=== PATIENT | female | born 1970 | race Caucasian/White ===

== ENCOUNTER → 2022-06-20 11:53 | Outpatient (CLI) | payer OTHER, SELFPAY ==
--- NOTE | ~2022-06-20 | MM_ITS ---
EXAMINATION: MM screening andressa BI w pawan HISTORY: Screening TECHNIQUE: Craniocaudal and mediolateral oblique 3-D tomosynthesis images were obtained and synthetic 2-D images were generated. CAD analysis was submitted and interpreted. COMPARISON: No prior mammogram is available for comparison at this institution. BREAST PARENCHYMAL COMPOSITION: There are scattered areas of fibroglandular density. FINDINGS: There is no evidence of suspicious mass, calcification, or architectural distortion to sugg est malignancy in either breast. There has been no suspicious interval change. IMPRESSION: 1. No mammographic evidence of malignancy. 2. Recommend routine screening mammography in one year. BI-RADS Category 1: Negative Reviewed, dictated and finalized at location A.
== END ==
PROVIDERS: PCP Family Medicine; Visit Provider Family Medicine
DX: Z12.31 Encounter for screening mammogram for malignant neoplasm of breast (principal)
CPT/HCPCS: 77063; 77067

== ENCOUNTER → 2022-07-14 07:58 | Outpatient (CLI) | payer OTHER, SELFPAY ==
--- NOTE | ~2022-07-14 | MR_ITS ---
EXAMINATION: MR foot RT wo con DATE: 07/14/2022 08:44 INDICATION: Right forefoot pain TECHNIQUE: Magnetic resonance imaging (MRI) of the right fore/mid foot was performed without intraven ous contrast. Sequences included sagittal T1-weighted FSE, sagittal fluid sensitive FSE STIR, coronal PD-weighted FS FSE, coronal T1-weighted FSE, axial PD-weighted FS FSE, and axial PD-weighted FSE. COMPARISON: None FINDINGS: Bone alignment is normal. No fracture or pathologic marrow replacing process. Moderate to severe oste oarthritis at the first metatarsophalangeal joint moderate size marginal osteophytes at the dorsal he ad of the first metatarsal and small joint effusion. Additional osteoarthritis at a few of the tarsal metatarsal joints, moderate at the first were there is mild subarticular edema-like signal change at the dorsolateral base of the first metatarsal and otherwise mild. The Lisfranc ligament complex and the collateral ligament complexes at the metatarsophalangeal and interphalangeal joints are normal. I ntrinsic musculature as well as the visualized portion of the flexor and extensor tendons are normal. IMPRESSION: 1. 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 Reviewed, dictated and finalized at location A.
== END ==
PROVIDERS: PCP Chiropractor Rehabilitation; Visit Provider Chiropractor Rehabilitation
DX: M19.071 Primary osteoarthritis, right ankle and foot (principal)
CPT/HCPCS: 73718

== ENCOUNTER 2025-02-04 09:28 | Outpatient (CLI) | payer OTHER, SELFPAY ==
--- NOTE | ~2025-02-04 | US_ITS ---
Examination: US abdomen complete Clinical History: elevated liver enzymes . Comparison: None Technique: Complete abdominal sonography Findings: Liver: Normal size. Normal echotexture. No intrahepatic biliary ductal dilatation. Normal hepatopedal flow main portal vein. 18 mm hyperechoic focus segment 3 most consistent with hemangioma. Common duct: Normal caliber, 5 mm. Gallbladder: No stones. No wall thickening. No pericholecystic fluid. Spleen: Unremarkable. Pancreas: Unremarkable. Kidneys: Unremarkable. Aorta: No aneurysmal dilatation. Retrohepatic IVC: Unremarkable. IMPRESSION: 1. No acute findings. Reviewed, dictated and finalized at location [facility] IMPRESSION: 1. No acute findings.
--- OUTSIDE RECORDS SUMMARY | 2025-02-04 10:06 | XMS_ITS | Continuity of Care Document ---
Author Organization [facility] Main Office Address [address] [place] [address] Assessment Encounter Date Assessment Date Assessment LastModified by Organization Details LastModified Time 12/07/2024 12/07/2024 Will send in testosterone based on blood work Try increasing melatonin May use Ketotifen to lower histamine and help with sleep cwillbrand Not available 12/07/2024 17:53:59 Plan of Treatment Reminders Order Date Submit Date Provider Last Modified By Organization Details Last Modified Time Details Appointments None recorded . Lab CORINNA (antinuc lear antibodi es) titer + pattern, ifa, serum 12/08/19 amalic [facility], [address], [place], [address], 5 07:30:14 CBC w/ auto diff 12/08/19 amalic [facility], [address], [place], [address], 5 07:30:14 cortisol , serum or plasma 12/08/19 amalic [facility], [address], [place], [address], 5 07:30:14 insulin, fasting, serum 025 12/08/19 amalic [facility], [address], [place], [address], 5 07:30:14 lipid panel, serum 12/08/19 amalic [facility], [address], [place], [address], 5 07:30:14 CBC w/ auto diff 12/08/19 amali [facility], [address], [place], [address], 5 07:30:14 CMP, serum or plasma 12/08/19 amali [facility], [address], [place], [address], 5 07:30:14 testoste scottie, free + total, serum 12/08/19 amalic Not available 5 07:30:13 estradio l, serum 12/08/19 amalic Not available 5 07:30:14 progeste scottie, serum 12/08/19 amalic Not available 5 07:30:14 dhea-sul fate, serum 12/08/19 amalic Not available 5 07:30:14 FSH (follicl e-stimul ating hormone) , serum 12/08/19 [facility], [address], [place], [address], 5 07:30:14 Referral None recorded . Procedures None recorded . Surgeries None recorded . Imaging None recorded . Medication Orders None recorded . Patient TargetsNo targets recorded. Patient InstructionsNo instructions recorded. Reason for Referral None Reported. Results Created Date Observation Date Name Description Value Unit Range Abnormal Flag Note LastModifiedBy Organization Detail LastModifiedTime 12/17/1912/16/2024 CBC WITH DIFFE RENTI AL/PL ATELE T WBC 4.7 x10e3 /uL 3.4-10 .8 normal Not Available [facility] ([facility]) [address] [facility], [place], [address], 12/22/2024 14:36:56 12/17/19 25 12/16/2024 CBC WITH DIFFE RENTI AL/PL ATELE T RBC 4.55 x10e6 /uL 3.77-5 .28 normal Not Available [facility] ([facility]) [address] [facility] [address] [facility], [place], [address], 12/22/2024 14:36:56 12/17/19 25 12/16/2024 CBC WITH DIFFE RENTI AL/PL ATELE T hemoglobin 13.5 g/dL 11.1-1 5.9 normal Not Available [facility] ([facility]) [address] [facility] [address] [facility], [place], [address], 12/22/2024 14:36:56 12/17/19 25 12/16/2024 CBC WITH DIFFE RENTI AL/PL ATELE T hematocrit 43.0 % 34.0-4 6.6 normal Not Available [facility] ([facility]) [address] [place], [address], 12/22/2024 14:36:56 12/17/19 25 12/16/2024 CBC WITH DIFFE RENTI AL/PL ATELE T MCV 95 fL 79-97 normal Not Available [facility] ([facility]) [address] [place], [address], 12/22/2024 14:36:56 12/17/19 25 12/16/2024 CBC WITH DIFFE RENTI AL/PL ATELE T MCH 29.7 pg 26.6-3 3.0 normal Not Available [facility] ([facility]) [address] [place], [address], 12/22/2024 14:36:56 12/17/19 25 12/16/2024 CBC WITH DIFFE RENTI AL/PL ATELE T MCHC 31.4 g/dL 31.5-3 5.7 below low normal Not Available [facility] ([facility]) [address] [facility], [place], [address], 12/22/2024 14:36:56 12/17/19 25 12/16/2024 CBC WITH DIFFE RENTI AL/PL ATELE T RDW 12.2 % 11.7-1 5.4 Not Available [facility] ([facility]) [address] [facility] [address] [facility], [place], [address], 12/22/2024 14:36:56 12/17/19 25 12/16/2024 CBC WITH DIFFE RENTI AL/PL ATELE T platelets 286 x10e3 /uL 150-45 0 normal Not Available [facility] ([facility]) [address] [facility] [address] [facility], [place], [address], 12/22/2024 14:36:56 12/17/19 25 12/16/2024 CBC WITH DIFFE RENTI AL/PL ATELE T neutrophils 69 % not estab. normal Not Available [facility] ([facility]) [address] [facility] [address] [facility], [place], [address], 12/22/2024 14:36:56 12/17/19 25 12/16/2024 CBC WITH DIFFE RENTI AL/PL ATELE T lymphs 21 % not estab. normal Not Available [facility] ([facility]) [address] [facility] [address] [facility], [place], [address], 12/22/2024 14:36:56 12/17/19 25 12/16/2024 CBC WITH DIFFE RENTI AL/PL ATELE T monocytes 7 % not estab. normal Not Available [facility] ([facility]) [address] [facility], [place], [address], 12/22/2024 14:36:56 12/17/19 25 12/16/2024 CBC WITH DIFFE RENTI AL/PL ATELE T eos 2 % not estab. normal Not Available [facility] ([facility]) [address] [facility] [address] [facility], [place], [address], 12/22/2024 14:36:56 12/17/19 25 12/16/2024 CBC WITH DIFFE RENTI AL/PL ATELE T basos 1 % not estab. normal Not Available [facility] ([facility]) [address] [facility] [address] [facility], [place], [address], 12/22/2024 14:36:56 12/17/19 25 12/16/2024 CBC WITH DIFFE RENTI AL/PL ATELE T immature cells [employer] Not Available [facility] ([facility]) [address] [facility] [address] [facility], [place], [address], 12/22/2024 14:36:56 12/17/19 25 12/16/2024 CBC WITH DIFFE RENTI AL/PL ATELE T neutrophils (absolute) 3.2 x10e3 /uL 1.4-7. 0 normal Not Available [facility] ([facility]) [address] [place], [address], 12/22/2024 14:36:56 12/17/19 25 12/16/2024 CBC WITH DIFFE RENTI AL/PL ATELE T lymphs (absolute) 1.0 x10e3 /uL 0.7-3. 1 normal Not Available [facility] ([facility]) [address] [place], [address], 12/22/2024 14:36:56 12/17/19 25 12/16/2024 CBC WITH DIFFE RENTI AL/PL ATELE T monocytes(ab solute) 0.3 x10e3 /uL 0.1-0. 9 normal Not Available [facility] ([facility]) [address] [place], [address], 12/22/2024 14:36:56 12/17/19 25 12/16/2024 CBC WITH DIFFE RENTI AL/PL ATELE T eos (absolute) 0.1 x10e3 /uL 0.0-0. 4 normal Not Available [facility] ([facility]) [address] [facility], [place], [address], 12/22/2024 14:36:56 12/17/19 25 12/16/2024 CBC WITH DIFFE RENTI AL/PL ATELE T baso (absolute) 0.0 x10e3 /uL 0.0-0. 2 normal Not Available [facility] ([facility]) [address] [facility], [place], [address], 12/22/2024 14:36:56 12/17/19 25 12/16/2024 CBC WITH DIFFE RENTI AL/PL ATELE T immature granulocytes 0 % not estab. Not Available [facility] ([facility]) [address] [facility], [place], [address], 12/22/2024 14:36:56 12/17/19 25 12/16/2024 CBC WITH DIFFE RENTI AL/PL ATELE T immature grans (abs) 0.0 x10e3 /uL 0.0-0. 1 Not Available [facility] ([facility]) [address] [place], [address], 12/22/2024 14:36:56 12/17/19 25 12/16/2024 CBC WITH DIFFE RENTI AL/PL ATELE T NRBC [employer] Not Available [facility] ([facility]) [address] [place], [address], 12/22/2024 14:36:56 12/17/19 25 12/16/2024 CBC WITH DIFFE RENTI AL/PL ATELE T hematology comments: [employer] PARALE[employer] Not Available [facility] ([facility]) [address] [place], [address], 12/22/2024 14:36:56 12/17/19 25 2024 CMP14 glucose 93 mg/dL 70-99 normal Not Availabl e [facility] ([facility]) [address] [place], [address], 12/22/2024 14:36:57 12/17/19 25 2024 CMP14 BUN 15 mg/dL 6-24 normal Not Available [facility] ([facility]) [address] [facility] [place], [address], 12/22/2024 14:36:57 12/17/19 25 2024 CMP14 creatinine 0.94 mg/dL 0.57-1 .00 normal Not Available [facility] ([facility]) [address] [place], [address], 12/22/2024 14:36:57 12/17/19 25 2024 CMP14 eGFR 72 mL/mi n/1.7 3 >59 normal Not Available [facility] ([facility]) [address] [facility] [place], [address], 12/22/2024 14:36:57 12/17/1912/17/2024 CMP14 BUN/creatini ne ratio 16 9-23 normal Not Available [facility] ([facility]) [address] [facility] [place], [address], 12/22/2024 14:36:57 12/17/19 25 2024 CMP14 sodium 140 mmol/ L 134-14 4 normal Not Available [facility] ([facility]) [address] [facility] [place], [address], 12/22/2024 14:36:57 12/17/19 25 2024 CMP14 potassium 4.5 mmol/ L 3.5-5. 2 normal Not Available [facility] ([facility]) [address] [facility] [place], [address], 12/22/2024 14:36:57 12/17/19 25 2024 CMP14 chloride 102 mmol/ L 96-106 normal Not Available [facility] ([facility]) [address] [facility], [place], [address], 12/22/2024 14:36:57 12/17/1912/17/2024 CMP14 carbon dioxide, total 26 mmol/ L 20- normal Not Available [facility] ([facility]) [address] [facility], [place], [address], 12/22/2024 14:36:57 12/17/1912/17/2024 CMP14 calcium 9.7 mg/dL 8.7-10 .2 normal Not Available [facility] ([facility]) [address] [facility], [place], [address], 12/22/2024 14:36:57 12/17/1912/17/2024 CMP14 protein, total 6.8 g/dL 6.0-8. 5 normal Not Available [facility] ([facility]) [address] [facility], [place], [address], 12/22/2024 14:36:57 12/17/1912/17/2024 CMP14 albumin 4.4 g/dL 3.8-4. 9 normal Not Available [facility] ([facility]) [address] [facility], [place], [address], 12/22/2024 14:36:57 12/17/1912/17/2024 CMP14 globulin, total 2.4 g/dL 1.5-4. 5 Not Available [facility] ([facility]) [address] [facility], [place], [address], 12/22/2024 14:36:57 12/17/1912/17/2024 CMP14 bilirubin, total 1.3 mg/dL 0.0-1. 2 above high normal Not Available [facility] ([facility]) [address] [facility] [address] [facility], [place], [address], 12/22/2024 14:36:57 12/17/1912/17/2024 CMP14 alkaline phosphatase 135 IU/L 49-135 normal Ple ase note refer ence inter shivani sagastume e Not Available [facility] ([facility]) [address] [place], [address], 12/22/2024 14:36:57 12/17/19 25 2024 CMP14 AST (SGOT) 37 IU/L 0-40 normal Not Avail able [facility] ([facility]) [address] [place], [address], 12/22/2024 14:36:57 12/17/19 25 2024 CMP14 ALT (SGPT) 57 IU/L 0-32 above high normal Not Available [facility] ([facility]) [address] [place], [address], 12/22/2024 14:36:57 12/17/19 25 2024 LIPID PANEL AND CHOL/ HDL RATIO cholesterol, total 270 mg/dL 100-19 9 above high normal Not Available [facility] ([facility]) [address] [place], [address], 12/22/2024 14:36:58 12/17/19 25 2024 LIPID PANEL AND CHOL/ HDL RATIO triglyceride s 145 mg/dL 0-149 normal Not Available [facility] ([facility]) [address] [place], [address], 12/22/2024 14:36:58 12/17/19 25 2024 LIPID PANEL AND CHOL/ HDL RATIO HDL cholesterol 63 mg/dL >39 normal Not Available [facility] ([facility]) [address] [place], [address], 12/22/2024 14:36:58 12/17/19 25 2024 LIPID PANEL AND CHOL/ HDL RATIO VLDL cholesterol monse 26 mg/dL 5-40 Not Available [facility] ([facility]) [address] [place], [address], 12/22/2024 14:36:58 12/17/1912/17/2024 LIPID PANEL AND CHOL/ HDL RATIO LDL chol calc ([facility]) 181 mg/dL 0-99 above high normal Not Available [facility] ([facility]) [address] [facility], [place], [address], 12/22/2024 14:36:58 12/17/1912/17/2024 LIPID PANEL AND CHOL/ HDL RATIO LDL calc comment: [employer] Not Available [facility] ([facility]) [address] [facility], [place], [address], 12/22/2024 14:36:58 12/17/1912/17/2024 LIPID PANEL AND CHOL/ HDL RATIO T. chol/HDL ratio 4.3 ratio 0.0-4. 4 T. Chol/ HDL Ratio Men Women 1/2 Avg.R isk 3.4 3.3 Avg.R isk 5.0 4.4 2X Avg.R isk 9.6 7.1 3X Avg.R isk 23.4 11.0 Not Available [facility] ([facility]) [address] [facility], [place], [address], 12/22/2024 14:36:58 12/17/1912/17/2024 FSH FSH 106.0 mIU/m L Adult Femal e Range Folli cular phase 3.5 - 12.5 Ovula tion phase 4.7 - 21.5 Lutea l phase 1.7 - 7.7 Postm enopa usal 25.8 - 134.8 Not Available [facility] ([facility]) [address] [facility], [place], [address], 12/22/2024 14:36:58 12/17/1912/17/2024 CORINNA W/RFX TO PATTE RNS+E NA+C. .. CORINNA by ifa rfx titer/patter n Positi ve abnormal Negat rocio <1:80 Borde rline 1:80 Posit rocio >1:80 Not Available [facility] ([facility]) [address] [place], [address], 12/22/2024 14:36:59 12/17/19 25 2024 CORINNA W/RFX TO PATTE RNS+E NA+C. .. homogeneous pattern [employer] Not Available [facility] ([facility]) [address] [place], [address], 12/22/2024 14:36:59 12/17/19 25 2024 CORINNA W/RFX TO PATTE RNS+E NA+C. .. nucleolar pattern [employer] Not Available [facility] ([facility]) [address] [place], [address], 12/22/2024 14:36:59 12/17/19 25 2024 CORINNA W/RFX TO PATTE RNS+E NA+C. .. speckled pattern 1:160 above high normal ICAP nomen clatu re: AC-2, 4,5,2 9 Not Available [facility] ([facility]) [address] [place], [address], 12/22/2024 14:36:59 12/17/19 25 2024 CORINNA W/RFX TO PATTE RNS+E NA+C. .. centromere pattern [employer] Not Available [facility] ([facility]) [address] [place], [address], 12/22/2024 14:36:59 12/17/19 25 2024 CORINNA W/RFX TO PATTE RNS+E NA+C. .. spindle apparatus pattern [employer] Not Available [facility] ([facility]) [address] [place], [address], 12/22/2024 14:36:59 12/17/19 25 2024 CORINNA W/RFX TO PATTE RNS+E NA+C. .. nuclear membrane pattern [employer] Not Available [facility] ([facility]) [address] [facility], [place], [address], 12/22/2024 14:36:59 12/17/19 25 2024 CORINNA W/RFX TO PATTE RNS+E NA+C. .. midbody pattern [employer] Not Available [facility] ([facility]) [address] [facility], [place], [address], 12/22/2024 14:36:59 12/17/19 25 2024 CORINNA W/RFX TO PATTE RNS+E NA+C. .. nuclear dot pattern [employer] Not Available [facility] ([facility]) [address] [facility], [place], [address], 12/22/2024 14:36:59 12/17/19 25 2024 CORINNA W/RFX TO PATTE RNS+E NA+C. .. pcna pattern [employer] Not Available [facility] ([facility]) [address] [facility], [place], [address], 12/22/2024 14:36:59 12/17/19 25 2024 CORINNA W/RFX TO PATTE RNS+E NA+C. .. centriole pattern [employer] Not Available [facility] ([facility]) [address] [facility], [place], [address], 12/22/2024 14:36:59 12/17/19 25 2024 CORINNA W/RFX TO PATTE RNS+E NA+C. .. note: [facility] ----- ----- --- ----- ----- ----- ----- ----- ----- ----- ----- ----- Homog eneou s Syste radames Lupus Eryth emato archana, Drug Induc ed Syste radames Lupus Eryth emato archana, Chron ic Autoi mmune hepat itis, [place] ile Idiop athic Arthr itis ----- ----- --- ----- ----- ----- ----- ----- ----- ----- ----- ----- Speck led Sjogr en Syndr ome, Syste radames Lupus Eryth emato archana, Subac bel Cutan eous Lupus , Neona jon Lupus , Conge nital Heart Block , Mixed Conne ctive Tissu e Disea se, Scler oderm a-dif fuse, Scler oderm a-Aut oimmu ne Myosi tis Overl ap Syndr ome, Syste radames Lupus Eryth emato archana-S clero derma -Auto immun e Myosi tis Overl ap Syndr ome, Syste radames Autoi mmune Rheum atic Disea se, Undsg Levinee ctive Tissu e Disea se ----- ----- --- ----- ----- ----- ----- ----- ----- ----- ----- ----- Nucle olar Syste radames Scler osis, Scler oderm a-Aut oimmu ne Myosi tis Overl ap Syndr ome, Sjogr en Syndr ome, Brie ud pheno rené , Pulmo nary Arter ial Hyper tensi on, Syste radames Autoi mmune Rheum atic Disea se, Naman r ----- ----- --- ----- ----- ----- ----- ----- ----- ----- ----- ----- Centr omere Scler oderm a-CRE ST, Limit ed Cutan eous SSc, Brie ud's Pheno rené , Prima ry Bilia ry Chola ngiti s ----- ----- --- ----- ----- ----- ----- ----- ----- ----- ----- ----- Nucle ar Dot Prima ry Bilia ry Chola ngiti s ----- ----- --- ----- ----- ----- ----- ----- ----- ----- ----- ----- Nucle ar Prima ry Bilia ry Chola ngiti s, Autoi mmune Membr ane Hepat itis/ Liver disea se, Syste radames Autoi mmune Rheum atic Disea se, Autoi mmune Cytop enias , Linea r Scler oderm a, Antip hosph olipi d Syndr ome ----- ----- --- ----- ----- ----- ----- ----- ----- ----- ----- ----- Not Available [facility] ([facility]) [address] [place], [address], 12/22/2024 14:36:59 12/17/1912/18/2024 CORINNA W/RFX TO PATTE RNS+E NA+C. .. complement C3, serum 133 mg/dL 82-167 Not Available [facility] ([facility]) [address] [place], [address], 12/22/2024 14:36:59 12/17/1912/18/2024 CORINNA W/RFX TO PATTE RNS+E NA+C. .. complement C4, serum 29 mg/dL 12-38 Not Available [facility] ([facility]) [address] [place], [address], 12/22/2024 14:36:59 12/17/1912/18/2024 CORINNA W/RFX TO PATTE RNS+E NA+C. .. thyroid peroxidase (tpo) Ab 13 IU/mL 0-34 normal Not Available [facility] ([facility]) [address] [place], [address], 12/22/2024 14:36:59 12/17/1912/18/2024 CORINNA W/RFX TO PATTE RNS+E NA+C. .. anti-DNA (ds) Ab qn 1 IU/mL 0-9 Negat rocio <5 Equiv ocal 5 - 9 Posit rocio >9 Not Available [facility] ([facility]) [address] [place], [address], 12/22/2024 14:36:59 12/17/1912/18/2024 CORINNA W/RFX TO PATTE RNS+E NA+C. .. draw hand antibodies 1.1 ai 0.0-0. 9 above high normal Not Available [facility] ([facility]) [address] [place], [address], 12/22/2024 14:36:59 12/17/1912/18/2024 CORINNA W/RFX TO PATTE RNS+E NA+C. .. cueva antibodies <0.2 ai 0.0-0. 9 Not Available [facility] ([facility]) [address] [place], [address], 12/22/2024 14:36:59 12/17/19 25 12/18/2024 CORINNA W/RFX TO PATTE RNS+E NA+C. .. antisclerode rma-70 antibodies <0.2 ai 0.0-0. 9 Not Available [facility] ([facility]) [address] [place], [address], 12/22/2024 14:36:59 12/17/1912/18/2024 CORINNA W/RFX TO PATTE RNS+E NA+C. .. sjogren's anti-ss-A <0.2 ai 0.0-0. 9 Not Available [facility] ([facility]) [address] [place], [address], 12/22/2024 14:36:59 12/17/19 25 12/18/2024 CORINNA W/RFX TO PATTE RNS+E NA+C. .. sjogren's anti-ss-B <0.2 ai 0.0-0. 9 Not Available [facility] ([facility]) [address] [facility], [place], [address], 12/22/2024 14:36:59 12/17/19 25 12/22/2024 CORINNA W/RFX TO PATTE RNS+E NA+C. .. anti-histone abs 1.3 units 0.0-0. 9 above high normal Negat rocio <1.0 Weak Posit rocio 1.0 - 1.5 Moder ate Posit rocio 1.6 - 2.5 Stron g Posit rocio >2.5 Not Available [facility] ([facility]) [address] [facility], [place], [address], 12/22/2024 14:36:59 Result Notes None recorded. Problems Name Problem SNOMED Code Status Onset Date Resolution Date Notes Provider Name and Address Organization Details Recorded Time Candidiasis 44275017 Active 2021 Danielle Clay [address] [place], [address], [facility] 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 4 16:46:18 Hypothyroidism 87494382 Active 2023 Danielle Clay [address] [place], [address], [facility] 4 16:46:20 Perimenopausal disorder 017737412 Active 2023 Danielle Clay [address] [place], [address], [facility] 4 16:46:21 Problem Notes None recorded. Procedures Surgical History Date Name Laterality Status Provider Name and Address Organization Details Recorded Time Appendectomy completed Sanjay pineda [facility] 10/21/2018 15:56:05 Tonsillectomy completed Sanjay Corrales [facility] 10/21/2018 15:56:11 Eye Surgery completed Sanjay morrissey [facility] 10/21/2018 15:56:18 Tubal Ligation completed Sanjay Corrales [facility] 10/21/2018 15:56:41 Imaging Results None recorded. Procedure Notes None recorded. Medical Equipment None Reported. Allergies Allergen ID Allergen Name Allergen Category Reaction Reaction Severity Criticality Documentation Date Start Date Code Code System Note Provider Name and Address Organization Details Recorded Time 28624 codeine medicatio n Not available Not available Not available 10/21/2018 2670 RxNorm LAMAR Sheehan [facility] 9 15:51:40 61920 Substance with sulfonami de structure and antibacte rial mechanism of action (substanc e) medicatio n Not available Not available Not available 10/21/2018 06851 8003 SNOMED Sanjay ratliff ND Kelsea [facility] 9 15:51:45 Medications Name Sig Start Date Stop Date Status Note LastModified by Organization Details LastModified Time compounded medication 1 qd 2024 active Not Available Not Available Not Avai lable compounded medication 1 po hs 07/10 completed Not Available Not Available Not Available compounded medication 1/2 muriel dissolved sublingua lly hs 12/07 completed Not Available Not Available Not Available compounded medication inject 10mg subq weekly 12/07 completed Not Available Not Available Not Available compounded medication 1 po every 3 days 07/10 completed Not Available Not Available Not Available compounded medication 1 po hs 12/07 completed Not Available Not Available Not Available compounded medication 1 po hs 12/07 completed Not Available Not Available Not Available compounded medication 1po hs 12/07 completed Not Available Not Available Not Available compounded medication 1/2 muriel dissolved sublingua lly hs 12/07 completed Not Available Not Available Not Available compounded medication 1 qd 2024 active Not Available Not Available Not Avai lable compounded medication 1 po hs 07/10 completed Not Available Not Available Not Available compounded medication 1 qd 07/10 completed Not Available Not Available Not Available compounded medication 1/2 po hs for 1 week, then 1 po hs for 1 week. If needed increase to 1 1/2 tablets po hs 2024 active Not Available Not Available Not Avai lable cromolyn 100 mg/5 mL oral concentrate TAKE 10 ML BY MOUTH FOUR TIMES DAILY 11/21 completed Not Available Not Available Not Available BD Insulin Syringe 1 mL 25 x 1 USE TO INJECT TESTOSTER ONE EVERY 2 WEEKS 07/10 completed Not Available Not Available Not Available ibuprofen 800 mg tablet 10/23 completed Not Available Not Available Not Available hydrocodone 5 mg-acetamin ophen 325 mg tablet TAKE 1 TABLET BY MOUTH EVERY 6 HOURS NEEDED FOR PAIN 10/23 completed Not Available Not Available Not Available fluconazole 200 mg tablet TAKE 1 TABLET BY MOUTH EVERY DAY 07/24 completed Not Available Not Available Not Available Prometrium 100 mg capsule Take 1 capsule every day by oral route. 04/11 completed Not Available Not Available Not Available ketorolac 0.5 % eye drops 10/23 completed Not Available Not Available Not Available prednisolon e acetate 1 % eye drops,suspe nsion 10/23 completed Not Available Not Available Not Available ciprofloxac in 0.3 % eye drops 10/23 completed Not Available Not Available Not Available cephalexin 500 mg capsule TAKE ONE CAPSULE BY MOUTH EVERY 8 HOURS UNTIL ALL TAKEN 10/23 completed Not Available Not Available Not Available neomycin-po lymyxin-dex ameth 3.5 mg/mL-10,00 0 unit/mL-0.1 % eye drops SHAKE LIQUID AND INSTILL 1 DROP IN LEFT EYE FOUR TIMES DAILY 12/07 completed Not Available Not Available Not Available brimonidine 0.2 % eye drops INSTILL 1 DROP IN RIGHT EYE TWICE DAILY 12/07 completed Not Available Not Available Not Available BD Luer-Adela Syringe 3 mL 25 gauge x 1 USE TO INJECT TESTOSTER ONE EVERY 2 WEEKS 10/23 completed Not Available Not Available Not Available hydroxychlo roquine 200 mg tablet TAKE 1 TABLET BY MOUTH EVERY DAY 07/24 completed Not Available Not Available Not Available testosteron e cypionate 200 mg/mL intramuscul ar oil Inject 0.15 mL every 2 weeks by intramusc ular route. 2024 active Not Available Not Available Not Avai lable methylpredn isolone 4 mg tablets in a dose pack FOLLOW PACKAGE DIRECTION S 12/07 completed Not Available Not Available Not Available spironolact one 50 mg tablet TAKE 2 TABLETS BY MOUTH DAILY 12/07 completed Not Available Not Available Not Available cholestyram ine (with sugar) 4 gram oral powder Take 1 scoop twice a day by oral route. 11/18 completed Not Available Not Available Not Available nitrofurant oin monohydrate /macrocryst als 100 mg capsule TAKE 1 CAPSULE BY MOUTH TWICE DAILY 07/10 completed Not Available Not Available Not Available chlorhexidi ne gluconate 0.12 % mouthwash RINSE AND SPIT 15 ML BY MOUTH TWICE DAILY 10/23 completed Not Available Not Available Not Available compounded medication 1qd 01/02 completed Not Available Not Available Not Available BD Regular Bevel [place] 21 gauge x 1 1/2 USE TO DRAW UP TESTOSTER ONE EVERY 2 WEEKS 12/07 completed Not Available Not Available Not Available BD Regular Bevel [place] 21 gauge x 1 USE DIRECTED TO DRAW UP TESTOSTER ONE EVERY 2 WEEKS 07/10 completed Not Available Not Available Not Available COMMERCIAL REAL ESTATE PARALEGAL Thyroid 30 mg tablet TAKE 1 TABLET BY MOUTH EVERY MORNING FOR 1 WEEK, THEN 2 TABLETS EVERY MORNING THEREAFTE R 12/07 completed Not Available Not Available Not Available Vitals Date Recorded Body weight Body mass index (BMI) Body height Heart rate Body temperature Systolic And Diastolic Provider Name and Address Organization Details Last Updated DateTime 5 77905.7 4 g 18.9 kg/m2 167.64 cm 101 /min 98.1 [degF] 102/67 mm[Hg] Sanjay Enamorado [facility] 17:14:17 Social History None recorded. Functional Status None recorded. Mental Status None recorded. Family History Relationship Description Onset Age of this Age Resolved Age Notes LastModified by Organization Details LastModified Time Father Heart disease amalic Not available 2018 15:55:12 Paternal Grandmother Malignant neoplastic disease amalic Not available 2018 15:55:33 Maternal Grandfather Type 2 diabetes mellitus amalic Not available 2018 15:55:51 Medical History Condition Response Coronary Artery Disease N Gout N Blood Diseases N Kidney Stones N Hyperthyroidism N Depression Y COPD N Hypothyroidism N Developmental or Behavioral Disorders N Anxiety Disorder Y Muscle, Joint, or Bone Problems N Vision or Eye Problems N Arthritis N Head Injury/Concussion N Congenital Anomalies N Cancer N Stroke N ADHD N Bladder or Kidney Problems N Hospital Admission other than N High Cholesterol N Liver Disease N Fibromyalgia N Headaches N Kidney Disease N Ear or Hearing Problems N Thyroid Problems N Skin Problems N Anemia N Constipation N Mental Illness N Diabetes N Bedwetting N Heart Problems/Murmur N Seizures/Epilepsy N Tuberculosis N Diverticulitis N Asthma N Allergies N Reflux/GERD N Heart Disease N Pulmonary Embolism N Hypertension N Chicken Pox Y Autism Spectrum Disorder (ASD) N Osteoporosis N Gynecological HistoryNo gynecological history recorded. Obstetrics History GPAL:G 0 P 0 0 0 0 Past Encounters Encounter ID Performer Location Encounter Start Date Encounter Closed Date Diagnosis/Indication Diagnosis SNOMED-CT Code Diagnosis ICD10 Code Diagnosis IMO Codes Diagnosis Note [id number] Tunde Vitale MD Main Office [address] [place] [address] 12/07/2024 17:11:44 12/07/2024 17:57:16 Drug therapy finding 994542428 Z79.890 94311150 Anti-nucle ar factor detected 271251829 R76.8 8415851 Menopause present 328122 006 Z78.0 94083 Hyperlipidemia 32173372 E78.5 25791071 General ex amination of patient 522898983 Z00.00 963823 Health Concerns Section Related Observation LastModified by Organization Detai ls LastModified Time None Recorded Concern Status LastModified by Organization Details LastModified Time None Recorded Payers Encounter Date Sequence Insurance Name Policy Number Policy [place] Covered Member ID [place] Member ID Guarantor Name 12/07/2024 1 *SELF PAY* Panchito Link Sona Notes Date Note Type Note Provider Name and Address Organization Details Recorded Time 12/07/2024 text/html ROS as noted in the HPI Mikki is here today for follow up - She has had spotting again. It occurs every year. She had been feeling better on testosterone. She has otilia off this for a while now since her testosterone was high when checked. Sleep - the biggest issue. She will fall asleep around 11pm and then wake at 2am and not be tired. But she isn't tired throughout the day. She would try benadryl and melatonin. Times when melatonin helps and other times it doesn't. Her energy level is better than it used to be. She gave up coffee and started drinking mushroom coffee. Her acid reflux had gotten bad and she thought she would give it up coffee to help with her acid reflux. Her hot flashes stopped. She feels the testosterone was helpful for her libido. May be it helped with sleep also. Tunde Vitale MD [address] [place], [address], [facility] 12/07/2024 23:13:17 OBGyn Episode No OBEpisode recorded.
--- OUTSIDE RECORDS SUMMARY | 2025-02-04 10:07 | XMS_ITS | Data Portability ---
Author Organization [facility] Address [address] [place] [address] Assessment Encounter Date Assessment Date Assessment LastModified by Organization Details LastModified Time 12/07/2024 12/07/2024 Will send in testosterone based on blood work Try increasing melatonin May use Ketotifen to lower histamine and help with sleep [email or web address] Not available 12/07/2024 17:53:59 Plan of Treatment Reminders Order Date Submit Date Provider Last Modified By Organization Details Last Modified Time Details Appointments None recorded. Lab CORINNA (antinucl ear antibodie s) titer + pattern, ifa, serum 2024 025 amalic [facility], [address], [place], [address], 5 07:30:14 CBC w/ auto diff 2024 025 amalic [facility], [address], [address], [place], [address], 5 07:30:14 cortisol, serum or plasma 2024 025 amalic [facility], [address], [place], [address], 5 07:30:14 insulin, fasting, serum 2024 025 amalic [facility], [address], [place], [address], 5 07:30:14 lipid panel, serum 2024 025 amalic [facility], [address], [place], [address], 5 07:30:14 CBC w/ auto diff 2024 025 amalic [facility], [address], [place], [address], 5 07:30:14 CMP, serum or plasma 2024 025 amalic [facility], [address], [place], [address], 5 07:30:14 testoster one, free + total, serum 2024 025 amalic Not available 5 07:30:13 estradiol , serum 2024 025 amalic Not available 5 07:30:14 progester one, serum 2024 025 amalic Not available 5 07:30:14 dhea-sulf ate, serum 2024 025 amalic Not available 5 07:30:14 FSH (follicle -stimulat ing hormone), serum 2024 025 amalic [facility], [address], [place], [address], 5 07:30:14 insulin, fasting, serum 2023 024 IMAN Not available 4 04:10:40 cortisol, serum or plasma 2023 024 IMAN Not available 4 04:10:38 lipid panel, blood 2023 024 IMAN Not available 4 04:10:38 CBC w/ auto diff 2023 024 IMAN Not available 4 04:10:36 CMP, serum or plasma 2023 024 IMNA Not available 4 04:10:38 HbA1c (hemoglob in A1c), blood 2023 024 IMAN Not available 4 04:10:37 CORINNA (antinucl ear antibodie s) titer + pattern, ifa, serum 2023 024 amalic Not available 4 07:16:19 CRP, high sensitivi ty, serum or plasma 2023 024 IMAN Not available 4 04:10:37 ESR (erythroc yte sedimenta tion rate), blood 2023 024 IMAN Not available 4 04:10:36 TSH, serum or plasma 2023 024 IMAN Not available 4 04:10:39 T3, free, serum or plasma 2023 024 amalic Not available 4 07:16:19 T4, free, serum 2023 024 IMAN Not available 4 04:10:39 estradiol , serum 2023 024 IMAN Not available 4 04:10:40 progester one, serum 2023 024 IMAN Not available 4 04:10:41 dhea-sulf ate, serum 2023 024 IMAN Not available 4 04:10:40 testoster one, free + total, serum 2023 024 IMAN Not available 4 04:10:42 CBC w/ auto diff 2022 023 amalic [facility], [address], [place], [address], 3 07:27:21 CMP, serum or plasma 2022 023 [facility], [address], [address], [place], [address], 3 07:27:21 TSH, serum or plasma 2022 023 [facility], [address], [place], [address], 3 07:27:21 lipid panel, serum [address] [facility] [address], [address], [place], [address], 3 07:27:21 ESR (erythroc yte sedimenta tion rate), blood 2022 023 [facility], [address], [address], [place], [address], 3 07:27:21 CBC w/ auto diff 2021 022 [facility], [address], [address], [place], [address], 2 03:30:32 CMP, serum or plasma 2021 022 [facility], [address], [place], [address], 2 03:30:32 Referral None recorded. Procedures None recorded. Surgeries None recorded. Imaging None recorded. Medication Orders CORPORATE SECRETARY Thyroid [address] [facility] #[id number], [address] [facility], [place], [place], [id number], 5 17:15:05 compounde d medicatio n [address], [address] [place] [address], [place], [place], [id number], 4 13:47:43 compounde d medicatio n 2022 023 [email or web address] 2 [facility] #[id number], [address], [place], [place], [id number], 4 13:45:54 Plaquenil 200 mg tablet 2021 022 cwillbrand [facility] #[id number], [address], [place], [place], [id number], 3 14:01:19 Patient TargetsNo targets recorded. Patient Instructions Encounter Date Encounter Id Patient Instructions Last Modified By Organization Details Last Modified Time 07/10/2021 [id number] If needed for energy, come in for Vitamin C infusions. [email or web address] Not available 07/10/2021 12:40:12 07/24/2022 [id number] [email or web address] red light therapy [email or web address] Coffee enemas twice a week Start Ivermectin for 2 -3 months cwillbrand Not available 07/24/2022 14:03:16 07/11/2023 [id number] Look into the Fast Metabolism Diet - [email or web address] olism-diet cwillbrand Not available 07/11/2023 14:14:10 10/24/2023 [id number] Add in Phosphadidyl Choline (liposomal) 2000mg daily Try Progesterone at night 3 weeks on and 1 week off. Richard Bi 200c1M 2 doses - for sinus drainage. Try increasing your Naltrexone to 4.5mg twice daily to help with joint pain cwillbrand Not available 10/24/2023 16:50:33 Reason for Referral None Reported. Results Created Date Observation Date Name Description Value Unit Range Abnormal Flag Note LastModifiedBy Organization Detail LastModifiedTime 07/11/19 22 07/10/2021 CMP(C OMPRE HENSI VE METAB OLIC PANEL ) sodium 139 mmol/ L 133-14 6 Not Available [facility] (Lab) [address], [place], [address], 07/11/2021 03:30:32 07/11/19 22 07/10/2021 CMP(C OMPRE HENSI VE METAB OLIC PANEL ) potassium 4.5 mmol/ L 3.5-5. 1 Not Available [facility] (Lab) [address], [place], [address], 07/11/2021 03:30:32 07/11/19 22 07/10/2021 CMP(C OMPRE HENSI VE METAB OLIC PANEL ) chloride 106 mmol/ L 98-107 Not Available [facility] (Lab) [address], [place], [address], 07/11/2021 03:30:32 07/11/19 22 07/10/2021 CMP(C OMPRE HENSI VE METAB OLIC PANEL ) carbon dioxide 26 mmol/ L 21-31 Not Available [facility] (Lab) [address], [place], [address], 07/11/2021 03:30:32 07/11/19 22 07/10/2021 CMP(C OMPRE HENSI VE METAB OLIC PANEL ) anion gap 7 mmol/ L 4-13 Not Available [facility] (Lab) [address], [place], [address], 07/11/2021 03:30:32 07/11/19 22 07/10/2021 CMP(C OMPRE HENSI VE METAB OLIC PANEL ) blood urea nitrogen 13 mg/dL 7-25 Not Available [facility] (Lab) [address], [place], [address], 07/11/2021 03:30:32 07/11/19 22 07/10/2021 CMP(C OMPRE HENSI VE METAB OLIC PANEL ) creatinine 1.05 mg/dL 0.60-1 .30 Not Available [facility] (Lab) [address], [place], [address], 07/11/2021 03:30:32 07/11/19 22 07/10/2021 CMP(C OMPRE HENSI VE METAB OLIC PANEL ) egfrcr (CKD-epi 2020) 64 mL/mi n/1.7 3_m2 >=60 Not Available [facility] (Lab) [address], [place], [address], 07/11/2021 03:30:32 07/11/19 22 07/10/2021 CMP(C OMPRE HENSI VE METAB OLIC PANEL ) calcium 9.8 mg/dL 8.3-10 .5 Not Available [facility] (Lab) [address], [place], [address], 07/11/2021 03:30:32 07/11/19 22 07/10/2021 CMP(C OMPRE HENSI VE METAB OLIC PANEL ) glucose 82 mg/dL 70-100 Not Available [facility] (Lab) [address], [place], [address], 07/11/2021 03:30:32 07/11/19 22 07/10/2021 CMP(C OMPRE HENSI VE METAB OLIC PANEL ) protein, total 7.4 g/dL 6.4-8. 3 Not Available [facility] (Lab) [address], [place], [address], 07/11/2021 03:30:32 07/11/19 22 07/10/2021 CMP(C OMPRE HENSI VE METAB OLIC PANEL ) albumin 4.4 g/dL 3.5-5. 0 Not Available [facility] (Lab) [address], [place], [address], 07/11/2021 03:30:32 07/11/19 22 07/10/2021 CMP(C OMPRE HENSI VE METAB OLIC PANEL ) ALT 23 units /L 9-43 Not Available [facility] (Lab) [address], [place], [address], 07/11/2021 03:30:32 07/11/19 22 07/10/2021 CMP(C OMPRE HENSI VE METAB OLIC PANEL ) alkaline phosphatase 72 units /L 34-104 Not Available [facility] (Lab) [address], [place], [address], 07/11/2021 03:30:32 07/11/19 22 07/10/2021 CMP(C OMPRE HENSI VE METAB OLIC PANEL ) AST 24 units /L 13-39 Not Available [facility] (Lab) [address], [place], [address], 07/11/2021 03:30:32 07/11/19 22 07/10/2021 CMP(C OMPRE HENSI VE METAB OLIC PANEL ) bilirubin, total 0.9 mg/dL 0.2-1. 2 Not Available [facility] (Lab) [address], [place], [address], 07/11/2021 03:30:32 07/11/19 22 07/10/2021 CBC W/DIF F WBC 6.2 10'3/ uL 3.6-10 .2 Not Available [facility] (Lab) [address], [place], [address], 07/11/2021 03:30:32 07/11/19 22 07/10/2021 CBC W/DIF F RBC 4.60 10'6/ uL (based on docume nted legal sex) 4.10-5 .30 Not Available [facility] (Lab) [address], [place], [address], 07/11/2021 03:30:32 07/11/19 22 07/10/2021 CBC W/DIF F HGB 14.2 g/dL (based on docume nted legal sex) 11.9-1 5.8 Not Available [facility] (Lab) [address], [place], [address], 07/11/2021 03:30:32 07/11/19 22 07/10/2021 CBC W/DIF F HCT 44.7 % (based on docume nted legal sex) 37.4-4 8.3 Not Available [facility] (Lab) [address], [place], [address], 07/11/2021 03:30:32 07/11/19 22 07/10/2021 CBC W/DIF F MCV 97.0 fL 82.0-9 9.0 Not Available [facility] (Lab) [address], [place], [address], 07/11/2021 03:30:32 07/11/19 22 07/10/2021 CBC W/DIF F MCH 31.0 pg 27.0-3 3.0 Not Available [facility] (Lab) [address], [place], [address], 07/11/2021 03:30:32 07/11/19 22 07/10/2021 CBC W/DIF F MCHC 32.0 g/dL 32.0-3 6.0 Not Available [facility] (Lab) [address], [place], [address], 07/11/2021 03:30:32 07/11/19 22 07/10/2021 CBC W/DIF F RDW 13.0 % 11.0-1 5.0 Not Available [facility] (Lab) [address], [place], [address], 07/11/2021 03:30:32 07/11/19 22 07/10/2021 CBC W/DIF F plt 263 10'3/ uL 150-45 0 Not Available [facility] (Lab) [address], [place], [address], 07/11/2021 03:30:32 07/11/19 22 07/10/2021 CBC W/DIF F MPV 12.3 fL 9.8-12 .7 Not Available [facility] (Lab) [address], [place], [address], 07/11/2021 03:30:32 07/11/19 22 07/10/2021 CBC W/DIF F NRBC's 0.00 % 0 Not Available [facility] (Lab) [address], [place], [address], 07/11/2021 03:30:32 07/11/19 22 07/10/2021 CBC W/DIF F absolute NRBCs 0.0 10'3/ uL 0 Not Available [facility] (Lab) [address], [place], [address], 07/11/2021 03:30:32 07/11/19 22 07/10/2021 CBC W/DIF F neutrophils 72.0 % 37.0-7 2.0 Not Available [facility] (Lab) [address], [place], [address], 07/11/2021 03:30:32 07/11/19 22 07/10/2021 CBC W/DIF F lymphocytes 18.0 % 16.0-4 8.0 Not Available [facility] (Lab) [address], [place], [address], 07/11/2021 03:30:32 07/11/19 22 07/10/2021 CBC W/DIF F monocytes 7.0 % 4.0-14 .0 Not Available [facility] (Lab) [address], [place], [address], 07/11/2021 03:30:32 07/11/19 22 07/10/2021 CBC W/DIF F eosinophils 2.0 % 0.0-9. 0 Not Available [facility] (Lab) [address], [place], [address], 07/11/2021 03:30:32 07/11/19 22 07/10/2021 CBC W/DIF F basophils 1.0 % 0.0-2. 0 Not Available [facility] (Lab) [address] [place], [address], 07/11/2021 03:30:32 07/11/19 22 07/10/2021 CBC W/DIF F immature granulocytes 0.0 % no define d refere nce range Not Available [facility] (Lab) [address], [place], [address], 07/11/2021 03:30:32 07/11/19 22 07/10/2021 CBC W/DIF F absolute neutrophils 4.4 10'3/ uL 1.1-6. 0 Not Available [facility] (Lab) [address], [place], [address], 07/11/2021 03:30:32 07/11/19 22 07/10/2021 CBC W/DIF F absolute lymphocytes 1.1 10'3/ uL 0.7-3. 4 Not Available [facility] (Lab) [address], [place], [address], 07/11/2021 03:30:32 07/11/19 22 07/10/2021 CBC W/DIF F absolute monocytes 0.5 10'3/ uL 0.3-1. 0 Not Available [facility] (Lab) [address], [place], [address], 07/11/2021 03:30:32 07/11/19 22 07/10/2021 CBC W/DIF F absolute eosinophils 0.2 10'3/ uL 0.0-0. 6 Not Available [facility] (Lab) [address], [place], [address], 07/11/2021 03:30:32 07/11/19 22 07/10/2021 CBC W/DIF F absolute basophils 0.1 10'3/ uL 0.0-0. 1 Not Available [facility] (Lab) [address] [place], [address], 07/11/2021 03:30:32 07/11/19 22 07/10/2021 CBC W/DIF F absolute immature granulocytes 0.00 10'3/ uL 0.00-0 .10 2021 2:26 AM: P indic ates parti al resul ts on a panel have been relea sed. Addit ional resul ts will follo w. 2021 2:26 AM: This resul t has been final verif ied. No addit ional or sagastume ed resul ts are expec feli. Not Available [facility] (Lab) [address], [place], [address], 07/11/2021 03:30:32 08/25/19 23 08/25/2022 CBC WITH DIFFE RENTI AL/PL ATELE T WBC 3.7 x10e3 /uL 3.4-10 .8 Not Available [facility] ([facility]) [address] [facility], [place], [address], 08/30/2022 12:37:05 08/25/19 23 08/25/2022 CBC WITH DIFFE RENTI AL/PL ATELE T RBC 4.46 x10e6 /uL 3.77-5 .28 Not Available [facility] ([facility]) [address] [facility] [facility], [place], [address], 08/30/2022 12:37:05 08/25/19 23 08/25/2022 CBC WITH DIFFE RENTI AL/PL ATELE T hemoglobin 13.4 g/dL 11.1-1 5.9 Not Available [facility] ([facility]) [address] [facility], [place], [address], 08/30/2022 12:37:05 08/25/19 23 08/25/2022 CBC WITH DIFFE RENTI AL/PL ATELE T hematocrit 41.5 % 34.0-4 6.6 Not Available [facility] ([facility]) [address] [place], [address], 08/30/2022 12:37:05 08/25/19 23 08/25/2022 CBC WITH DIFFE RENTI AL/PL ATELE T MCV 93 fL 79-97 Not Available [facility] ([facility]) [address] [facility], [place], [address], 08/30/2022 12:37:05 08/25/19 23 08/25/2022 CBC WITH DIFFE RENTI AL/PL ATELE T MCH 30.0 pg 26.6-3 3.0 Not Available [facility] ([facility]) [address] [facility], [place], [address], 08/30/2022 12:37:05 08/25/19 23 08/25/2022 CBC WITH DIFFE RENTI AL/PL ATELE T MCHC 32.3 g/dL 31.5-3 5.7 Not Available [facility] ([facility]) [address] [facility], [place], [address], 08/30/2022 12:37:05 08/25/19 23 08/25/2022 CBC WITH DIFFE RENTI AL/PL ATELE T RDW 12.1 % 11.7-1 5.4 Not Available [facility] ([facility]) [address], [place], [address], 08/30/2022 12:37:05 08/25/19 23 08/25/2022 CBC WITH DIFFE RENTI AL/PL ATELE T platelets 275 x10e3 /uL 150-45 0 Not Available [facility] ([facility]) [address] [facility], [place], [address], 08/30/2022 12:37:05 08/25/19 23 08/25/2022 CBC WITH DIFFE RENTI AL/PL ATELE T neutrophils 60 % not estab. Not Available [facility] ([facility]) [address] [facility], [place], [address], 08/30/2022 12:37:05 08/25/19 23 08/25/2022 CBC WITH DIFFE RENTI AL/PL ATELE T lymphs 28 % not estab. Not Available [facility] ([facility]) [address] [facility], [place], [address], 08/30/2022 12:37:05 08/25/19 23 08/25/2022 CBC WITH DIFFE RENTI AL/PL ATELE T monocytes 8 % not estab. Not Available [facility] ([facility]) [address] [facility], [place], [address], 08/30/2022 12:37:05 08/25/19 23 08/25/2022 CBC WITH DIFFE RENTI AL/PL ATELE T eos 3 % not estab. Not Available [facility] ([facility]) [address] [place], [address], 08/30/2022 12:37:05 08/25/19 23 08/25/2022 CBC WITH DIFFE RENTI AL/PL ATELE T basos 1 % not estab. Not Available [facility] ([facility]) [address] [facility], [place], [address], 08/30/2022 12:37:05 08/25/19 23 08/25/2022 CBC WITH DIFFE RENTI AL/PL ATELE T immature cells CORPORATE SECRETARY Not Available [facility] ([facility]) [address] [place], [address], 08/30/2022 12:37:05 08/25/19 23 08/25/2022 CBC WITH DIFFE RENTI AL/PL ATELE T neutrophils (absolute) 2.2 x10e3 /uL 1.4-7. 0 Not Available [facility] ([facility]) [address] [place], [address], 08/30/2022 12:37:05 08/25/19 23 08/25/2022 CBC WITH DIFFE RENTI AL/PL ATELE T lymphs (absolute) 1.0 x10e3 /uL 0.7-3. 1 Not Available [facility] ([facility]) [address] [place], [address], 08/30/2022 12:37:05 08/25/19 23 08/25/2022 CBC WITH DIFFE RENTI AL/PL ATELE T monocytes(ab solute) 0.3 x10e3 /uL 0.1-0. 9 Not Available [facility] ([facility]) [address] [facility], [place], [address], 08/30/2022 12:37:05 08/25/19 23 08/25/2022 CBC WITH DIFFE RENTI AL/PL ATELE T eos (absolute) 0.1 x10e3 /uL 0.0-0. 4 Not Available [facility] ([facility]) [address] [place], [address], 08/30/2022 12:37:05 08/25/19 23 08/25/2022 CBC WITH DIFFE RENTI AL/PL ATELE T baso (absolute) 0.0 x10e3 /uL 0.0-0. 2 Not Available [facility] ([facility]) [address] [facility], [place], [address], 08/30/2022 12:37:05 08/25/19 23 08/25/2022 CBC WITH DIFFE RENTI AL/PL ATELE T immature granulocytes 0 % not estab. Not Available [facility] ([facility]) [address] [place], [address], 08/30/2022 12:37:05 08/25/19 23 08/25/2022 CBC WITH DIFFE RENTI AL/PL ATELE T immature grans (abs) 0.0 x10e3 /uL 0.0-0. 1 Not Available [facility] ([facility]) [address] [place], [address], 08/30/2022 12:37:05 08/25/19 23 08/25/2022 CBC WITH DIFFE RENTI AL/PL ATELE T NRBC CORPORATE SECRETARY Not Available [facility] ([facility]) [address] [place], [address], 08/30/2022 12:37:05 08/25/19 23 08/25/2022 CBC WITH DIFFE BENJAMIN AL/SIMON [facility] hematology comments: CORPORATE SECRETARY Not Available [facility] ([facility]) [address] [facility], [place], [address], 08/30/2022 12:37:05 08/25/19 23 08/25/2022 COMP. METAB OLIC PANEL (14) glucose 87 mg/dL 70-99 Not Available [facility] ([facility]) [address] [facility], [place], [address], 08/30/2022 12:37:06 08/25/19 23 08/25/2022 COMP. METAB OLIC PANEL (14) BUN 19 mg/dL 6-24 Not Available [facility] ([facility]) [address] [facility], [place], [address], 08/30/2022 12:37:06 08/25/19 23 08/25/2022 COMP. METAB OLIC PANEL (14) creatinine 0.97 mg/dL 0.57-1 .00 Not Available [facility] ([facility]) [address] [facility], [place], [address], 08/30/2022 12:37:06 08/25/19 23 08/25/2022 COMP. METAB OLIC PANEL (14) eGFR 70 mL/mi n/1.7 3 >59 Not Available [facility] ([facility]) [address] [facility], [place], [address], 08/30/2022 12:37:06 08/25/19 23 08/25/2022 COMP. METAB OLIC PANEL (14) BUN/creatini ne ratio 20 9-23 Not Available [facility] ([facility]) [address] [facility], [place], [address], 08/30/2022 12:37:06 08/25/19 23 08/25/2022 COMP. METAB OLIC PANEL (14) sodium 139 mmol/ L 134-14 4 Not Available [facility] ([facility]) [address] [place], [address], 08/30/2022 12:37:06 08/25/19 23 08/25/2022 COMP. METAB OLIC PANEL (14) potassium 4.4 mmol/ L 3.5-5. 2 Not Available [facility] ([facility]) [address] [place], [address], 08/30/2022 12:37:06 08/25/19 23 08/25/2022 COMP. METAB OLIC PANEL (14) chloride 102 mmol/ L 96-106 Not Available [facility] ([facility]) [address] [place], [address], 08/30/2022 12:37:06 08/25/19 23 08/25/2022 COMP. METAB OLIC PANEL (14) carbon dioxide, total 24 mmol/ L 20-29 Not Available [facility] ([facility]) [address] [place], [address], 08/30/2022 12:37:06 08/25/19 23 08/25/2022 COMP. METAB OLIC PANEL (14) calcium 9.6 mg/dL 8.7-10 .2 Not Available [facility] ([facility]) [address] [place], [address], 08/30/2022 12:37:06 08/25/19 23 08/25/2022 COMP. METAB OLIC PANEL (14) protein, total 6.9 g/dL 6.0-8. 5 Not Available [facility] ([facility]) [address] [place], [address], 08/30/2022 12:37:06 08/25/19 23 08/25/2022 COMP. METAB OLIC PANEL (14) albumin 4.6 g/dL 3.8-4. 9 Not Available [facility] ([facility]) [address] [place], [address], 08/30/2022 12:37:06 08/25/19 23 08/25/2022 COMP. METAB OLIC PANEL (14) globulin, total 2.3 g/dL 1.5-4. 5 Not Available [facility] ([facility]) [address] [place], [address], 08/30/2022 12:37:06 08/25/19 23 08/25/2022 COMP. METAB OLIC PANEL (14) A/G ratio 2.0 1.2-2. 2 Not Available [facility] ([facility]) [address] [place], [address], 08/30/2022 12:37:06 08/25/19 23 08/25/2022 COMP. METAB OLIC PANEL (14) bilirubin, total 0.7 mg/dL 0.0-1. 2 Not Available [facility] ([facility]) [address] [place], [address], 08/30/2022 12:37:06 08/25/19 23 08/25/2022 COMP. METAB OLIC PANEL (14) alkaline phosphatase 72 IU/L 44-121 Not Available [facility]) [address] [place], [address], 08/30/2022 12:37:06 08/25/19 23 08/25/2022 COMP. METAB OLIC PANEL (14) AST (SGOT) 20 IU/L 0-40 Not Available [facility] ([facility]) [address] [place], [address], 08/30/2022 12:37:06 08/25/19 23 08/25/2022 COMP. METAB OLIC PANEL (14) ALT (SGPT) 17 IU/L 0-32 Not Available [facility] ([facility]) [address] [place], [address], 08/30/2022 12:37:06 08/25/19 23 08/25/2022 LIPID PANEL cholesterol, total 241 mg/dL 100-19 9 above high normal Not Available [facility] ([facility]) [address] [place], [address], 08/30/2022 12:37:07 08/25/19 23 08/25/2022 LIPID PANEL triglyceride s 108 mg/dL 0-149 Not Available [facility] ([facility]) [address] [place], [address], 08/30/2022 12:37:07 08/25/19 23 08/25/2022 LIPID PANEL HDL cholesterol 53 mg/dL >39 Not Available [facility] ([facility]) [address] [place], [address], 08/30/2022 12:37:07 08/25/19 23 08/25/2022 LIPID PANEL VLDL cholesterol monse 19 mg/dL 5-40 Not Available [facility] ([facility]) [address] [place] [place], [address], 08/30/2022 12:37:07 08/25/19 23 08/25/2022 LIPID PANEL LDL chol calc ([facility]) 169 mg/dL 0-99 above high normal Not Available [facility] ([facility]) [address] [place], [address], 08/30/2022 12:37:07 08/25/19 23 08/25/2022 LIPID PANEL comment: CORPORATE SECRETARY Not Available [facility] ([facility]) [address] [place], [address], 08/30/2022 12:37:07 08/25/19 23 08/30/2022 THYRO ID STIMU LATIN G HORMO NE TSH-icma 0.95 uu/mL Refer ence Range : Non-P regna nt Adult 0.450 -4.50 0 Pregn ranjith First Trime ster 0.100 -4.00 0 [place] Trime ster 0.200 -4.00 0 Third Trime ster 0.300 -4.50 0 Not Available [facility] [address] [place], [address], 08/30/2022 12:37:10 08/25/19 23 08/25/2022 SEDIM ENTAT ION RATE- WESTE RGREN sedimentatio n rate-westerg renata 8 mm/HR 0-40 Not Available [facility] ([facility]) [address] [facility], [place], [place], [address], 08/30/2022 12:37:11 07/11/19 24 07/11/2023 CBC W/DIF F WBC 6.2 10'3/ uL 3.5-10 .5 Not Available [facility] (Lab) [address] , [place], [address], 07/18/2023 04:10:36 07/11/19 24 07/11/2023 CBC W/DIF F RBC 4.70 10'6/ uL (based on docume nted legal sex) 3.80-5 .20 Not Available [facility] (Lab) [address], [place], [address], 07/18/2023 04:10:36 07/11/19 24 07/11/2023 CBC W/DIF F HGB 13.8 g/dL (based on docume nted legal sex) 11.6-1 5.4 Not Available [facility] (Lab) [address], [place], [address], 07/18/2023 04:10:36 07/11/19 24 07/11/2023 CBC W/DIF F HCT 44.7 % (based on docume nted legal sex) 34.0-4 5.0 Not Available [facility] (Lab) [address], [place], [address], 07/18/2023 04:10:36 07/11/19 24 07/11/2023 CBC W/DIF F MCV 95.1 fL 80.0-9 9.0 Not Available [facility] (Lab) [address], [place], [address], 07/18/2023 04:10:36 07/11/19 24 07/11/2023 CBC W/DIF F MCH 29.4 pg 27.0-3 4.0 Not Available [facility] (Lab) [address], [place], [address], 07/18/2023 04:10:36 07/11/19 24 07/11/2023 CBC W/DIF F MCHC 30.9 g/dL 32.0-3 5.5 low Not Available [facility] (Lab) [address], [place], [address], 07/18/2023 04:10:36 07/11/19 24 07/11/2023 CBC W/DIF F RDW 13.2 % 11.0-1 5.0 Not Available [facility] (Lab) [address], [place], [address], 07/18/2023 04:10:36 07/11/19 24 07/11/2023 CBC W/DIF F plt 285 10'3/ uL 150-40 0 Not Available [facility] (Lab) [address], [place], [address], 07/18/2023 04:10:36 07/11/19 24 07/11/2023 CBC W/DIF F MPV 12.2 fL 8.8-12 .1 high Not Available [facility] (Lab) [address], [place], [address], 07/18/2023 04:10:36 07/11/19 24 07/11/2023 CBC W/DIF F NRBC's 0.0 % 0.0 Not Available [facility] (Lab) [address] [place], [address], 07/18/2023 04:10:36 07/11/19 24 07/11/2023 CBC W/DIF F absolute NRBCs 0.0 10'3/ uL no refere nce range establ ished Not Available [facility] (Lab) [address] [facility], [place], [address], 07/18/2023 04:10:36 07/11/19 24 07/11/2023 CBC W/DIF F neutrophils 69.9 % 34.0-7 3.0 Not Available [facility] (Lab) [address] [facility], [place], [address], 07/18/2023 04:10:36 07/11/19 24 07/11/2023 CBC W/DIF F lymphocytes 20.0 % 15.0-5 0.0 Not Available [facility] (Lab) [address] [facility], [place], [address], 07/18/2023 04:10:36 07/11/19 24 07/11/2023 CBC W/DIF F monocytes 7.0 % 1.0-15 .0 Not Available [facility] (Lab) [address] [facility], [place], [address], 07/18/2023 04:10:36 07/11/19 24 07/11/2023 CBC W/DIF F eosinophils 2.0 % 0.0-8. 0 Not Available [facility] (Lab) [address] [facility], [place], [address], 07/18/2023 04:10:36 07/11/19 24 07/11/2023 CBC W/DIF F basophils 0.8 % 0.0-2. 0 Not Available [facility] (Lab) [address] [place], [address], 07/18/2023 04:10:36 07/11/19 24 07/11/2023 CBC W/DIF F immature granulocytes 0.3 % no define d refere nce range Not Available [facility] (Lab) [address] [facility], [place], [address], 07/18/2023 04:10:36 07/11/19 24 07/11/2023 CBC W/DIF F absolute neutrophils 4.3 10'3/ uL 1.5-8. 0 Not Available [facility] (Lab) [address] [place], [address], 07/18/2023 04:10:36 07/11/19 24 07/11/2023 CBC W/DIF F absolute lymphocytes 1.2 10'3/ uL 1.0-4. 0 Not Available [facility] (Lab) [address] [facility], [place], [address], 07/18/2023 04:10:36 07/11/19 24 07/11/2023 CBC W/DIF F absolute monocytes 0.4 10'3/ uL 0.2-1. 0 Not Available [facility] (Lab) [address] [place], [address], 07/18/2023 04:10:36 07/11/19 24 07/11/2023 CBC W/DIF F absolute eosinophils 0.1 10'3/ uL 0.0-0. 6 Not Available [facility] (Lab) [address] [place], [address], 07/18/2023 04:10:36 07/11/19 24 07/11/2023 CBC W/DIF F absolute basophils 0.1 10'3/ uL 0.0-0. 3 Not Available [facility] (Lab) [address] [place], [address], 07/18/2023 04:10:36 07/11/19 24 07/11/2023 CBC W/DIF F absolute immature granulocytes 0.0 10'3/ uL 0.00-0 .10 DRAWN BY STAFF 2023 7:03 AM: P indic ates parti al resul ts on a panel have been relea sed. Addit ional resul ts will follo w. DRAWN BY STAFF DRAWN BY STAFF DRAWN BY STAFF 2023 7:03 AM: This resul t has been final verif ied. No addit ional or sagastume ed resul ts are expec feli. Not Available [facility] (Lab) [address] , [place], [address], 07/18/2023 04:10:36 07/11/19 24 07/11/2023 SEDIM ENTAT ION RATE, ESR sedimentatio n rate 14 mm/ho ur (based on docume nted legal sex) 0-30 DRAWN BY STAFF Not Available [facility] (Lab) [address], [place], [address], 07/18/2023 04:10:36 07/11/19 24 07/11/2023 HEMOG LOBIN A1C hemoglobin A1C 5.6 % 0-5.6 DRAWN BY STAFF The Ameri can Diabe chet Assoc iatio n recom mends that a prima ry goal of thera py shoul d be a HBA1C of < 7% and that physi cians shoul d reeva luate the treat ment regim en in patie nts with HBA1C value s consi stent ly > 8%. <5.7% Felisa l 5.7 - 6.4% Incre ased risk for diabe chet >=6.5 % Diagn ostic of diabe chet <7.0% Goal of thera py >8.0% Actio n sugge sted Not Available [facility] (Lab) [address], [place], [address], 07/18/2023 04:10:37 07/11/19 24 07/11/2023 CRP, HIGH SENSI TIVIT Y (HSCR P) C-reactive protein, high sensitivity 1.53 mg/L 0.00-3 .00 Risk Accor ding To AHA/C DC Guide lines : < 1.0 mg/L Low Cardi ovasc ular Risk 1.0-3 .0 mg/L [place] ge Cardi ovasc ular Risk > 3.0 mg/L High Cardi ovasc ular Risk > 10.0 mg/L Acute Infla mmati on DRAWN BY STAFF Not Available [facility] (Lab) [address] [place], [address], 07/18/2023 04:10:37 07/11/19 24 07/11/2023 LIPID PANEL ,AMA (LDL- CALC) total cholesterol 220 mg/dL 0-199 high Not Available [facility] (Lab) [address] [place], [address], 07/18/2023 04:10:37 07/11/19 24 07/11/2023 LIPID PANEL ,AMA (LDL- CALC) triglyceride s 188 mg/dL 0-150 high NCEP Refer ence Value s for Trigl yceri sunday: Felisa l: <150 mg/dL Borde rline High: 150 - 199 mg/dL High: 200 - 499 mg/dL Very High: >/= 500 mg/dL Not Available [facility] (Lab) [address] [place], [address], 07/18/2023 04:10:37 07/11/19 24 07/11/2023 LIPID PANEL ,AMA (LDL- CALC) HDL cholesterol 55 mg/dL >40 Not Available [facility] (Lab) [address] [place], [address], 07/18/2023 04:10:37 07/11/19 24 07/11/2023 LIPID PANEL ,AMA (LDL- CALC) LDL cholesterol 133 mg/dL 0-99 high Cutof f value s recom marquita d by the Chema nal Sonali stero l Educa tion Progr am: TRENT ABLE: Sonali stero l <200 mg/dL LDL <100 mg/dL BORDE RLINE : Sonali stero l 200-2 39 mg/dL LDL 101-1 59 mg/dL HIGHE R RISK: Sonali stero l >240 mg/dL LDL >160 mg/dL , HDL <40 mg/dL Not Available [facility] (Lab) [address] [place], [address], 07/18/2023 04:10:37 07/11/19 24 07/11/2023 LIPID PANEL ,AMA (LDL- CALC) non-HDL cholesterol 165 mg/dL no refere nce range A reaso nable goal for non-H DL sonali stero l is one that is 30 mg/dL highe r than the LDL sonali stero l goal. Not Available [facility] (Lab) [address], [place], [address], 07/18/2023 04:10:37 07/11/1907/11/2023 LIPID PANEL ,AMA (LDL- CALC) chol/HDL ratio 4.0 . 0.0-5. 0 DRAWN BY STAFF On July 17, 2022, [facility] labor atori mandie sagastume ed the equat ion for calcu latin g estim ated low-d ensit y lipop rotei n-cho leste rol (LDL- C) from the Fried moriah equat ion to the Mary n/Hop kins equat ion. This new equat ion is only valid for lipid panel s with trigl yceri sunday < 400 mg/dL . Studi es have michelleon rusty ed that this new equat ion will impro ve the accur acy of LDL-C , espec ially in [place] when LDL-C parag ntrat ions are relat ively low (< 100 mg/dL ), trigl yceri sunday are eleva feli, or patie nt is non-f astin g. Refer ences : - Mary espino, Petr Galvan, Frankie Cunningham , [facility] estuardo BAlex powers, Mario Diaz, Piter [facility] , and Zi Garcia . 2013. Comp ariso n of a Novel Metho d vs the Fried moriah Equat ion for Estim ating Low-D ensit y Lipop rotei n Sonali stero l Level s from the [facility] Lipid Profi jason. SUSY: The Journ al of the Ameri can Medic al Assoc iatio n 310 (19): 2060- . - Joaquín shah V, Joanne J, Willian shah A, Aleena Valdez, Ella gant R, Mayte shah E, Iveth holman RS, Jose SR, Mary espino SS. Fast ing Versu s Nonfa sting and Low-D ensit y Lipop rotei n Sonali stero l Accur acy. Circu latio n. 2017Mar 26;137 (1):1 0-19. Not Available [facility] (Lab) [address] [facility], [place], [address], 07/18/2023 04:10:37 07/11/19 24 07/11/2023 CMP(C OMPRE HENSI VE METAB OLIC PANEL ) sodium 139 mmol/ L 133-14 6 Not Available [facility] (Lab) [address] [facility], [place], [address], 07/18/2023 04:10:38 07/11/19 24 07/11/2023 CMP(C OMPRE HENSI VE METAB OLIC PANEL ) potassium 4.4 mmol/ L 3.5-5. 1 Not Available [facility] (Lab) [address] [facility], [place], [address], 07/18/2023 04:10:38 07/11/19 24 07/11/2023 CMP(C OMPRE HENSI VE METAB OLIC PANEL ) chloride 103 mmol/ L 98-107 Not Available [facility] (Lab) [address] [facility], [place], [address], 07/18/2023 04:10:38 07/11/19 24 07/11/2023 CMP(C OMPRE HENSI VE METAB OLIC PANEL ) carbon dioxide 30 mmol/ L 21-31 Not Available [facility] (Lab) [address] [place], [address], 07/18/2023 04:10:38 07/11/19 24 07/11/2023 CMP(C OMPRE HENSI VE METAB OLIC PANEL ) anion gap 6 mmol/ L 4-13 Not Available [facility] (Lab) [address] [place], [address], 07/18/2023 04:10:38 07/11/19 24 07/11/2023 CMP(C OMPRE HENSI VE METAB OLIC PANEL ) blood urea nitrogen 13 mg/dL 7-25 Not Available [facility] (Lab) [address] [facility], [place], [address], 07/18/2023 04:10:38 07/11/19 24 07/11/2023 CMP(C OMPRE HENSI VE METAB OLIC PANEL ) creatinine 0.92 mg/dL 0.60-1 .30 Not Available [facility] (Lab) [address] [facility], [place], [address], 07/18/2023 04:10:38 07/11/19 24 07/11/2023 CMP(C OMPRE HENSI VE METAB OLIC PANEL ) egfrcr (CKD-epi 2020) 74 mL/mi n/1.7 3_m2 >=60 Not Available [facility] (Lab) [address] [facility], [place], [address], 07/18/2023 04:10:38 07/11/19 24 07/11/2023 CMP(C OMPRE HENSI VE METAB OLIC PANEL ) calcium 9.9 mg/dL 8.3-10 .5 Not Available [facility] (Lab) [address] [facility], [place], [address], 07/18/2023 04:10:38 07/11/19 24 07/11/2023 CMP(C OMPRE HENSI VE METAB OLIC PANEL ) glucose 86 mg/dL 70-100 Not Available [facility] (Lab) [address] [facility], [place], [address], 07/18/2023 04:10:38 07/11/19 24 07/11/2023 CMP(C OMPRE HENSI VE METAB OLIC PANEL ) protein, total 6.9 g/dL 6.4-8. 3 Not Available [facility] (Lab) [address] [facility], [place], [address], 07/18/2023 04:10:38 07/11/19 24 07/11/2023 CMP(C OMPRE HENSI VE METAB OLIC PANEL ) albumin 4.4 g/dL 3.5-5. 0 Not Available [facility] (Lab) [address] [facility], [place], [address], 07/18/2023 04:10:38 07/11/19 24 07/11/2023 CMP(C OMPRE HENSI VE METAB OLIC PANEL ) ALT 49 units /L 9-43 high Not Available [facility] (Lab) [address] [facility], [place], [address], 07/18/2023 04:10:38 07/11/19 24 07/11/2023 CMP(C OMPRE HENSI VE METAB OLIC PANEL ) alkaline phosphatase 103 units /L 34-104 Not Available [facility] (Lab) [address] [facility], [place], [address], 07/18/2023 04:10:38 07/11/19 24 07/11/2023 CMP(C OMPRE HENSI VE METAB OLIC PANEL ) AST 31 units /L 13-39 Not Available [facility] (Lab) [address] [place], [address], 07/18/2023 04:10:38 07/11/19 24 07/11/2023 CMP(C OMPRE HENSI VE METAB OLIC PANEL ) bilirubin, total 0.9 mg/dL 0.2-1. 2 DRAWN BY STAFF Not Available [facility] (Lab) [address] [place], [address], 07/18/2023 04:10:38 07/11/19 24 07/11/2023 NAYELI CLEMENT M cortisol 9.9 ug/dL R-REF ERENC E RANGE S: A.M. : 6.70 - 22.60 ug/dL - P.M. : <10.0 0 ug/dL DRAWN BY STAFF Not Available [facility] (Lab) [address] [place], [address], 07/18/2023 04:10:38 07/11/19 24 07/11/2023 TSH TSH 1.25 uIU/m L 0.30-5 .33 DRAWN BY STAFF Not Available [facility] (Lab) [address] [place], [address], 07/18/2023 04:10:39 07/11/19 24 07/11/2023 T4 FREE T4, free 0.76 NG/dL 0.60-1 .40 This assay is susce ptibl e to inter feren ce from high level s of bioti n which may false ly eleva te resul ts. Pleas e corre late with clini monse findi ngs. DRAWN BY STAFF Not Available [facility] (Lab) [address] [facility], [place], [address], 07/18/2023 04:10:39 07/11/19 24 07/11/2023 DHEA SULFA TE DHEA-sulfate 154 ug/dL Femal e Range s Age(y ) Range (ug/d L) 10-15 34-28 0 15-20 65-36 8 20-25 148-4 07 25-35 99-34 0 35-45 61-33 7 45-55 35-25 6 55-65 19-20 5 65-75 9-246 > 75 12-15 4 DRAWN BY STAFF Not Available [facility] (Lab) [address] [facility], [place], [address], 07/18/2023 04:10:39 07/11/19 24 07/11/2023 INSUL IN,FA STING insulin, fasting 2.7 uIU/m L 1.9-23 .0 DRAWN BY STAFF Not Available [facility] (Lab) [address] [facility], [place], [address], 07/18/2023 04:10:40 07/11/19 24 07/11/2023 ESTRA DIOL estradiol 125.0 pg/mL This assay was perfo rmed using [employer] ratio n reage nts and test kits. Value s obtai david with other assay metho ds or kits canno t be used inter sagastume eably . Femal e Estra diol Range s: Folli cular phasE 12.4- 233 pg/mL Ovula tion phasE 41.0- 398 pg/mL Lutea l phasE 22.3- 341 pg/mL Postm enopa usal <5-13 8 pg/mL Healt hy Pregn ant Women 1st Trime ster 154-3 243 pg/mL 2nd Trime ster 1561- 51604 pg/mL 3rd Trime ster 8525- >3000 0 pg/mL DRAWN BY STAFF Not Available [facility] (Lab) [address] , [place], [address], 07/18/2023 04:10:40 07/11/19 24 07/11/2023 PROGE STERO NE progesterone 0.71 NG/mL This assay was perfo rmed using [employer] reage nts and test kits. Value s obtai david with other assay metho ds or kits canno t be used inter sagastume eably . Femal e Proge stero ne Range s: Folli cular phasE 0.06- 0.89 ng/mL Ovula tion phasE 0.12- 12.00 ng/mL Lutea l phasE 1.83- 23.90 ng/mL Postm enopa usal <0.05 -0.13 ng/mL Healt hy Pregn ant Women 1st Trime ster 11.0- 44.30 2nd Trime ster 25.40 -83.3 0 3rd Trime ster 58.70 -214. 00 DRAWN BY STAFF Not Available [facility] (Lab) [address], [place], [address], 07/18/2023 04:10:41 07/11/19 24 07/11/2023 FREE T3 T3, free 2.46 pg/mL 2.00-4 .40 This assay is susce ptibl e to inter feren ce from high level s of bioti n which may false ly eleva te resul ts. Pleas e corre late with clini monse findi ngs inclu ding TSH and FT4 resul ts. If clini kaylin indic ated, Free T3 by Jose Alfredo Torres sis LC/MS may be perfo rmed. DRAWN BY STAFF Not Available [facility] (Lab) [address] [facility], [place], [address], 07/18/2023 04:10:41 07/11/19 24 07/11/2023 CORINNA SCREE N/REF SANJUANITA TITER /ALAYNA JING anti-nuclear antibody Positi ve negati ve abnormal The CORINNA scree n is posit rocio. Addit ional testi ng for DNA and JUAN Autoa ntibo dies is recom marquita d [facility] the speci ficit y of this CORINNA. Pleas e conta ct our Clien t Servi nicolas Depar tment withi n 5 days to add on testi ng. CORINNA titer s and patte rns are perfo rmed using an immun ofluo resce nce assay techn ology . Follo w up testi ng for posit rocio speci mens, if requi red, is perfo rmed using multi plex bead techn ology . Not Available [facility] (Lab) [address] [facility], [place], [address], 07/18/2023 04:10:42 07/11/19 24 07/11/2023 CORINNA SCREE N/REF SANJUANITA TITER /ALAYNA JING CORINNA titer 1:80 (none) abnormal Not Available [facility] (Lab) [address] [facility], [place], [address], 07/18/2023 04:10:42 07/11/19 24 07/11/2023 CORINNA SCREE N/REF SANJUANITA TITER /ALAYNA JING CORINNA pattern Atypic al Speckl ed, sugges tive of multip le nuclea r dot patter n (none) abnormal Atypi monse speck led CORINNA, sugge stive of multi ple nucle ar dot patte rn (anti body to 11 kd prote in in nucle us). This antib ronald is seen in 27-44 % of patie nts with prima ry bilia ry cirrh osis. DRAWN BY STAFF Not Available [facility] (Lab) [address] [facility], [place], [address], 07/18/2023 04:10:42 07/11/19 24 07/11/2023 TESTO STERO NE, FREE, DIREC T WITH TOTAL testosterone , serum 144 NG/dL 4-50 high Not Available [facility] (Lab) [address] [facility], [place], [address], 07/18/2023 04:10:42 07/11/19 24 07/11/2023 TESTO STERO NE, FREE, DIREC T WITH TOTAL free testosterone (direct) 4.0 pg/mL 0.0-4. 2 DRAWN BY STAFF Perfo rmed at: 01 - [facility] [address] [place] [address] Lab Direc tor: Jose Elias blood PhD, Phone : [phone] Perfo rmed at: 02 - [facility] [address] [place] [address] Lab Direc tor: Betsy lee MD, Phone : [phone] Not Available [facility] (Lab) [address] [facility], [place], [address], 07/18/2023 04:10:42 12/17/19 25 12/16/2024 CBC WITH DIFFE RENTI AL/PL ATELE T WBC 4.7 x10e3 /uL 3.4-10 .8 normal Not Available [facility] ([facility]) [address] [place], [address], 12/22/2024 14:36:56 12/17/1912/16/2024 CBC WITH DIFFE RENTI AL/PL ATELE T RBC 4.55 x10e6 /uL 3.77-5 .28 normal Not Available [facility] ([facility]) [address] [place], [address], 12/22/2024 14:36:56 12/17/1912/16/2024 CBC WITH DIFFE RENTI AL/PL ATELE T hemoglobin 13.5 g/dL 11.1-1 5.9 normal Not Available [facility] ([facility]) [address] [place], [address], 12/22/2024 14:36:56 12/17/19 25 12/16/2024 CBC WITH DIFFE RENTI AL/PL ATELE T hematocrit 43.0 % 34.0-4 6.6 normal Not Available [facility] ([facility]) [address] [facility], [place], [address], 12/22/2024 14:36:56 12/17/19 25 12/16/2024 CBC WITH DIFFE RENTI AL/PL ATELE T MCV 95 fL 79-97 normal Not Available [facility] ([facility]) [address] [facility], [place], [address], 12/22/2024 14:36:56 12/17/19 25 12/16/2024 CBC WITH DIFFE RENTI AL/PL ATELE T MCH 29.7 pg 26.6-3 3.0 normal Not Available [facility] ([facility]) [address] [facility], [place], [address], 12/22/2024 14:36:56 12/17/19 25 12/16/2024 CBC WITH DIFFE RENTI AL/PL ATELE T MCHC 31.4 g/dL 31.5-3 5.7 below low normal Not Available [facility] ([facility]) [address] [facility], [place], [address], 12/22/2024 14:36:56 12/17/1912/16/2024 CBC WITH DIFFE RENTI AL/PL ATELE T RDW 12.2 % 11.7-1 5.4 Not Available [facility] ([facility]) [address] [place], [address], 12/22/2024 14:36:56 12/17/19 25 12/16/2024 CBC WITH DIFFE RENTI AL/PL ATELE T platelets 286 x10e3 /uL 150-45 0 normal Not Available [facility] ([facility]) [address] [place], [address], 12/22/2024 14:36:56 12/17/19 25 12/16/2024 CBC WITH DIFFE RENTI AL/PL ATELE T neutrophils 69 % not estab. normal Not Available [facility] ([facility]) [address] [facility], [place], [address], 12/22/2024 14:36:56 12/17/19 25 12/16/2024 CBC WITH DIFFE RENTI AL/PL ATELE T lymphs 21 % not estab. normal Not Available [facility] ([facility]) [address] [place], [address], 12/22/2024 14:36:56 12/17/19 25 12/16/2024 CBC WITH DIFFE RENTI AL/PL ATELE T monocytes 7 % not estab. normal Not Available [facility] ([facility]) [address] [place], [address], 12/22/2024 14:36:56 12/17/19 25 12/16/2024 CBC WITH DIFFE RENTI AL/PL ATELE T eos 2 % not estab. normal Not Available [facility] ([facility]) [address] [facility], [place], [address], 12/22/2024 14:36:56 12/17/19 25 12/16/2024 CBC WITH DIFFE RENTI AL/PL ATELE T basos 1 % not estab. normal Not Available [facility] ([facility]) [address] [facility], [place], [address], 12/22/2024 14:36:56 12/17/19 25 12/16/2024 CBC WITH DIFFE RENTI AL/PL ATELE T immature cells CORPORATE SECRETARY Not Available [facility] ([facility]) [address] [place], [address], 12/22/2024 14:36:56 12/17/19 25 12/16/2024 CBC WITH DIFFE RENTI AL/PL ATELE T neutrophils (absolute) 3.2 x10e3 /uL 1.4-7. 0 normal Not Available [facility] ([facility]) [address] [place], [address], 12/22/2024 14:36:56 12/17/19 25 12/16/2024 CBC WITH DIFFE RENTI AL/PL ATELE T lymphs (absolute) 1.0 x10e3 /uL 0.7-3. 1 normal Not Available [facility] ([facility]) [address] [place], [address], 12/22/2024 14:36:56 12/17/19 25 12/16/2024 CBC WITH DIFFE RENTI AL/PL ATELE T monocytes(ab solute) 0.3 x10e3 /uL 0.1-0. 9 normal Not Available [facility] ([facility]) [address] [place], [address], 12/22/2024 14:36:56 12/17/19 25 12/16/2024 CBC WITH DIFFE RENTI AL/PL ATELE T eos (absolute) 0.1 x10e3 /uL 0.0-0. 4 normal Not Available [facility] ([facility]) [address] [place], [address], 12/22/2024 14:36:56 12/17/19 25 12/16/2024 CBC WITH DIFFE RENTI AL/PL ATELE T baso (absolute) 0.0 x10e3 /uL 0.0-0. 2 normal Not Available [facility] ([facility]) [address] [place], [address], 12/22/2024 14:36:56 12/17/19 25 12/16/2024 CBC WITH DIFFE RENTI AL/PL ATELE T immature granulocytes 0 % not estab. Not Available [facility] ([facility]) [address] [place], [address], 12/22/2024 14:36:56 12/17/19 25 12/16/2024 CBC WITH DIFFE RENTI AL/PL ATELE T immature grans (abs) 0.0 x10e3 /uL 0.0-0. 1 Not Available [facility] ([facility]) [address] [facility], [place], [address], 12/22/2024 14:36:56 12/17/1912/16/2024 CBC WITH DIFFE RENTI AL/PL ATELE T NRBC CORPORATE SECRETARY Not Available [facility] ([facility]) [address] [facility], [place], [address], 12/22/2024 14:36:56 12/17/1912/16/2024 CBC WITH DIFFE RENTI AL/PL ATELE T hematology comments: CORPORATE SECRETARY Not Available [facility] ([facility]) [address] [facility], [place], [address], 12/22/2024 14:36:56 12/17/19 25 2024 CMP14 glucose 93 mg/dL 70-99 normal Not Availabl e [facility] ([facility]) [address] [facility], [place], [address], 12/22/2024 14:36:57 12/17/19 25 2024 CMP14 BUN 15 mg/dL 6-24 normal Not Available [facility] ([facility]) [address] [facility], [place], [address], 12/22/2024 14:36:57 12/17/19 25 2024 CMP14 creatinine 0.94 mg/dL 0.57-1 .00 normal Not Available [facility] ([facility]) [address] [facility], [place], [address], 12/22/2024 14:36:57 12/17/19 25 2024 CMP14 eGFR 72 mL/mi n/1.7 3 >59 normal Not Available [facility] ([facility]) [address] [facility], [place], [address], 12/22/2024 14:36:57 12/17/1912/17/2024 CMP14 BUN/creatini ne ratio 16 9-23 normal Not Available [facility] ([facility]) [address] [facility] [place], [address], 12/22/2024 14:36:57 12/17/1912/17/2024 CMP14 sodium 140 mmol/ L 134-14 4 normal Not Available [facility] ([facility]) [address] [place] [place], [address], 12/22/2024 14:36:57 12/17/1912/17/2024 CMP14 potassium 4.5 mmol/ L 3.5-5. 2 normal Not Available [facility] ([facility]) [address] [place] [place], [address], 12/22/2024 14:36:57 12/17/1912/17/2024 CMP14 chloride 102 mmol/ L 96-106 normal Not Available [facility] ([facility]) [address] [place] [place], [address], 12/22/2024 14:36:57 12/17/1912/17/2024 CMP14 carbon dioxide, total 26 mmol/ L 20-29 normal Not Available [facility] ([facility]) [address] [place] [place], [address], 12/22/2024 14:36:57 12/17/1912/17/2024 CMP14 calcium 9.7 mg/dL 8.7-10 .2 normal Not Available [facility] ([facility]) [address] [place] [place], [address], 12/22/2024 14:36:57 12/17/1912/17/2024 CMP14 protein, total 6.8 g/dL 6.0-8. 5 normal Not Available [facility] ([facility]) [address] [place], [address], 12/22/2024 14:36:57 12/17/1912/17/2024 CMP14 albumin 4.4 g/dL 3.8-4. 9 normal Not Available [facility] ([facility]) [address] [place], [address], 12/22/2024 14:36:57 12/17/1912/17/2024 CMP14 globulin, total 2.4 g/dL 1.5-4. 5 Not Available [facility] ([facility]) [address] [place], [address], 12/22/2024 14:36:57 12/17/1912/17/2024 CMP14 bilirubin, total 1.3 mg/dL 0.0-1. 2 above high normal Not Available [facility] ([facility]) [address] [facility] [place], [address], 12/22/2024 14:36:57 12/17/1912/17/2024 CMP14 alkaline phosphatase 135 IU/L 49-135 normal Ple ase note refer ence inter shivani sagastume e Not Available [facility] ([facility]) [address] [facility] [place], [address], 12/22/2024 14:36:57 12/17/1912/17/2024 CMP14 AST (SGOT) 37 IU/L 0-40 normal Not Avail able [facility] ([facility]) [address] [facility] [place], [address], 12/22/2024 14:36:57 12/17/1912/17/2024 CMP14 ALT (SGPT) 57 IU/L 0-32 above high normal Not Available [facility] ([facility]) [address] [facility] [place], [address], 12/22/2024 14:36:57 12/17/19 25 2024 LIPID PANEL AND CHOL/ HDL RATIO cholesterol, total 270 mg/dL 100-19 9 above high normal Not Available [facility] ([facility]) [address] [place], [address], 12/22/2024 14:36:58 12/17/19 25 2024 LIPID PANEL AND CHOL/ HDL RATIO triglyceride s 145 mg/dL 0-149 normal Not Available [facility] ([facility]) [address] [place], [address], 12/22/2024 14:36:58 12/17/19 25 2024 LIPID PANEL AND CHOL/ HDL RATIO HDL cholesterol 63 mg/dL >39 normal Not Available [facility]) [address] [place], [address], 12/22/2024 14:36:58 12/17/19 25 2024 LIPID PANEL AND CHOL/ HDL RATIO VLDL cholesterol monse 26 mg/dL 5-40 Not Available [facility] ([facility]) [address] [place], [address], 12/22/2024 14:36:58 12/17/19 25 2024 LIPID PANEL AND CHOL/ HDL RATIO LDL chol calc ([facility]) 181 mg/dL 0-99 above high normal Not Available [facility] ([facility]) [address] [place], [address], 12/22/2024 14:36:58 12/17/19 25 2024 LIPID PANEL AND CHOL/ HDL RATIO LDL calc comment: CORPORATE SECRETARY Not Available [facility] ([facility]) [address] [place], [address], 12/22/2024 14:36:58 12/17/19 25 2024 LIPID PANEL AND CHOL/ HDL RATIO T. chol/HDL ratio 4.3 ratio 0.0-4. 4 T. Chol/ HDL Ratio Men Women 1/2 Avg.R isk 3.4 3.3 Avg.R isk 5.0 4.4 2X Avg.R isk 9.6 7.1 3X Avg.R isk 23.4 11.0 Not Available [facility] ([facility]) [address] [place], [address], 12/22/2024 14:36:58 12/17/1912/17/2024 FSH FSH 106.0 mIU/m L Adult Femal e Range Folli cular phase 3.5 - 12.5 Ovula tion phase 4.7 - 21.5 Lutea l phase 1.7 - 7.7 Postm enopa usal 25.8 - 134.8 Not Available [facility] ([facility]) [address] [place], [address], 12/22/2024 14:36:58 12/17/1912/17/2024 CORINNA W/RFX TO PATTE RNS+E NA+C. .. CORINNA by ifa rfx titer/patter n Positi ve abnormal Negat rocio <1:80 Borde rline 1:80 Posit rocio >1:80 Not Available [facility] ([facility]) [address] [place], [address], 12/22/2024 14:36:59 12/17/1912/17/2024 CORINNA W/RFX TO PATTE RNS+E NA+C. .. homogeneous pattern CORPORATE SECRETARY Not Available [facility] ([facility]) [address] [place], [address], 12/22/2024 14:36:59 12/17/1912/17/2024 CORINNA W/RFX TO PATTE RNS+E NA+C. .. nucleolar pattern CORPORATE SECRETARY Not Available [facility] ([facility]) [address] [place], [address], 12/22/2024 14:36:59 12/17/19 25 2024 CORINNA W/RFX TO PATTE RNS+E NA+C. .. speckled pattern 1:160 above high normal ICAP nommoi nogueira re: AC-2, 4,5,2 9 Not Available [facility] ([facility]) [address] [facility], [place], [address], 12/22/2024 14:36:59 12/17/1912/17/2024 CORINNA W/RFX TO PATTE RNS+E NA+C. .. centromere pattern CORPORATE SECRETARY Not Available [facility] ([facility]) [address] [facility], [place], [address], 12/22/2024 14:36:59 12/17/19 25 2024 CORINNA W/RFX TO PATTE RNS+E NA+C. .. spindle apparatus pattern CORPORATE SECRETARY Not Available [facility] ([facility]) [address] [facility], [place], [address], 12/22/2024 14:36:59 12/17/19 25 2024 CORINNA W/RFX TO PATTE RNS+E NA+C. .. nuclear membrane pattern CORPORATE SECRETARY Not Available [facility] ([facility]) [address] [facility], [place], [address], 12/22/2024 14:36:59 12/17/19 25 2024 CORINNA W/RFX TO PATTE RNS+E NA+C. .. midbody pattern CORPORATE SECRETARY Not Available [facility] ([facility]) [address] [place], [address], 12/22/2024 14:36:59 12/17/1912/17/2024 CORINNA W/RFX TO PATTE RNS+E NA+C. .. nuclear dot pattern CORPORATE SECRETARY Not Available [facility] ([facility]) [address] [place], [address], 12/22/2024 14:36:59 12/17/1912/17/2024 CORINNA W/RFX TO PATTE RNS+E NA+C. .. pcna pattern CORPORATE SECRETARY Not Available [facility] ([facility]) [address] [facility], [place], [address], 12/22/2024 14:36:59 12/17/19 25 2024 CORINNA W/RFX TO PATTE RNS+E NA+C. .. centriole pattern CORPORATE SECRETARY Not Available [facility] ([facility]) [address] [facility], [place], [address], 12/22/2024 14:36:59 12/17/1912/17/2024 CORINNA W/RFX TO PATTE RNS+E NA+C. .. note: [facility] ----- ----- --- [...] Syste radames Lupus Eryth emato archana, Subac catawba Cutan eous Lupus , Neona jon Lupus , Conge nital Heart Block , Mixed Conne ctive Tissu e Disea se, Scler oderm a-dif fuse, Scler oderm a-Aut oimmu ne Myosi tis Overl ap Syndr ome, Syste radames Lupus Eryth emato archana-S clero derma -Auto immun e Myosi tis Overl ap Syndr ome, Syste radames Autoi mmune Rheum atic Disea se, Undif fermoi montgomery Conne ctive Tissu e Disea se ----- ----- --- ----- ----- ----- ----- ----- ----- ----- ----- ----- Nucle olar Syste radames Scler osis, Scler oderm a-Aut oimmu ne Myosi tis Overl ap Syndr ome, Sjogr en Syndr ome, Brie ud pheno rené , Pulmo nary Arter ial Hyper tensi on, Syste radames Autoi mmune Rheum atic Disea se, Cance r ----- ----- --- ----- ----- ----- [...] ----- ----- ----- ----- ----- Not Available [facility] ([facility]) [address] [facility], [place], [address], 12/22/2024 14:36:59 12/17/1912/18/2024 CORINNA W/RFX TO PATTE RNS+E NA+C. .. complement C3, serum 133 mg/dL 82-167 Not Available [facility] ([facility]) [address] [facility], [place], [address], 12/22/2024 14:36:59 12/17/1912/18/2024 CORINNA W/RFX TO PATTE RNS+E NA+C. .. complement C4, serum 29 mg/dL 12-38 Not Available [facility] ([facility]) [address] [facility], [place], [address], 12/22/2024 14:36:59 12/17/1912/18/2024 CORINNA W/RFX TO PATTE RNS+E NA+C. .. thyroid peroxidase (tpo) Ab 13 IU/mL 0-34 normal Not Available [facility] ([facility]) [address] [facility], [place], [address], 12/22/2024 14:36:59 12/17/1912/18/2024 CORINNA W/RFX TO PATTE RNS+E NA+C. .. anti-DNA (ds) Ab qn 1 IU/mL 0-9 Negat rocio <5 Equiv ocal 5 - 9 Posit rocio >9 Not Available [facility] ([facility]) [address] [facility], [place], [address], 12/22/2024 14:36:59 12/17/1912/18/2024 CORINNA W/RFX TO PATTE RNS+E NA+C. .. hydraulic mechanic antibodies 1.1 ai 0.0-0. 9 above high normal Not Available [facility] ([facility]) [address] [facility], [place], [address], 12/22/2024 14:36:59 12/17/19 25 12/18/2024 CORINNA W/RFX TO PATTE RNS+E NA+C. .. cueva antibodies <0.2 ai 0.0-0. 9 Not Available [facility] ([facility]) [address] [place], [address], 12/22/2024 14:36:59 12/17/1912/18/2024 CORINNA W/RFX TO PATTE RNS+E NA+C. .. antisclerode rma-70 antibodies <0.2 ai 0.0-0. 9 Not Available [facility] ([facility]) [address] [place], [address], 12/22/2024 14:36:59 12/17/1912/18/2024 CORINNA W/RFX TO PATTE RNS+E NA+C. .. sjogren's anti-ss-A <0.2 ai 0.0-0. 9 Not Available [facility] ([facility]) [address] [place], [address], 12/22/2024 14:36:59 12/17/1912/18/2024 CORINNA W/RFX TO PATTE RNS+E NA+C. .. sjogren's anti-ss-B <0.2 ai 0.0-0. 9 Not Available [facility] ([facility]) [address] [place], [address], 12/22/2024 14:36:59 12/17/1912/22/2024 CORINNA W/RFX TO PATTE RNS+E NA+C. .. anti-histone abs 1.3 units 0.0-0. 9 above high normal Negat rocio <1.0 Weak Posit rocio 1.0 - 1.5 Moder ate Posit rocio 1.6 - 2.5 Stron g Posit rocio >2.5 Not Available [facility] ([facility]) [address] [place], [address], 12/22/2024 14:36:59 06/21/19 23 06/20/2022 MAMMO , scree domenic, bilat eral No observ ation record ed. [facility] [address], [place], [address], 06/20/2022 21:46:43 Result Notes None recorded. Problems Name Problem SNOMED Code Status Onset Date Resolution Date Notes Provider Name and Address Organization Details Recorded Time Candidiasis 29725212 Active 2021 Danielle Clay [address] [place], [address], [facility] 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 4 16:46:18 Hypothyroidism 99567835 Active 2023 Danielle Clay [address] [place], [address], [facility] 4 16:46:20 Perimenopausal disorder 047770981 Active 2023 Danielle Clay [address] [place], [address], [facility] 4 16:46:21 Problem Notes None recorded. Procedures Surgical History Date Name Laterality Status Provider Name and Address Organization Details Recorded Time Appendectomy completed Sanjay pineda [facility] 10/21/2018 15:56:05 Tonsillectomy completed Sanjay [facility]ral[facility] 10/21/2018 15:56:11 Eye Surgery completed [facility] 10/21/2018 15:56:18 Tubal Ligation completed Sanjay [facility] 10/21/2018 15:56:41 Imaging Results None recorded. Procedure Notes None recorded. Medical Equipment None Reported. Allergies Allergen ID Allergen Name Allergen Category Reaction Reaction Severity Criticality Documentation Date Start Date Code Code System Note Provider Name and Address Organization Details Recorded Time 03251 codeine medicatio n Not available Not available Not available 10/21/2018 2670 RxNorm LAMAR She[facility] 9 15:51:40 69726 Substance with sulfonami de structure and antibacte rial mechanism of action (substanc e) medicatio n Not available Not available Not available 10/21/2018 94661 8003 SNOMED Sanjay ratliff [facility] 9 15:51:45 Medications Name Sig Start Date [...] every 2 weeks by intramusc ular route. 10/17/ 2025 active Not Available Not Available Not Avai [...] Not Available Not Available BD Regular Bevel Pindall 21 gauge x 1 1/2 USE TO DRAW UP TESTOSTER ONE EVERY 2 WEEKS 12/07 completed Not Available Not Available Not Available BD Regular Bevel Pindall 21 gauge x 1 USE DIRECTED TO DRAW UP TESTOSTER ONE EVERY 2 WEEKS 07/10 completed Not Available Not Available Not Available CORPORATE SECRETARY Thyroid 30 mg tablet TAKE 1 TABLET BY MOUTH EVERY MORNING FOR 1 WEEK, THEN 2 TABLETS EVERY MORNING THEREAFTE R 12/07 completed Not Available Not Available Not Available Vitals Date Recorded Body height Body mass index (BMI) Body weight Body temperature Heart rate Systolic And Diastolic Provider Name and Address Organization Details Last Updated DateTime 2 167.64 cm 21.1 kg/m2 68005.6 g 97.7 [degF] 76 /min 121/76 mm[Hg] Sanjay Leahy [facility] 2 12:16:39 Date Recorded Body height Heart rate Body temperature Body mass index (BMI) Body weight Systolic And Diastolic Provider Name and Address Organization Details Last Updated DateTime 4 167.64 cm 71 /min 98.2 [degF] 22.4 kg/m2 12454.3 4 g 115/79 mm[Hg] Linnea Maynard [facility] 4 13:47:02 Date Recorded Body height Body mass index (BMI) Body weight Body temperature Heart rate Systolic And Diastolic Provider Name and Address Organization Details Last Updated DateTime 3 167.64 cm 21.7 kg/m2 42248.1 g 98 [degF] 82 /min 108/74 mm[Hg] Genoveva Mullen [facility] 3 13:20:10 Date Recorded Body height Body mass index (BMI) Body weight Heart rate Body temperature Systolic And Diastolic Provider Name and Address Organization Details Last Updated DateTime 4 167.64 cm 21.1 kg/m2 99751.8 8 g 76 /min 97.8 [degF] 112/74 mm[Hg] Sanjay Leahy [facility] 4 16:05:46 Date Recorded Body weight Body mass index (BMI) Body height Heart rate Body temperature Systolic And Diastolic Provider Name and Address Organization Details Last Updated DateTime 5 07724.7 4 g 18.9 kg/m2 167.64 cm 101 /min 98.1 [degF] 102/67 mm[Hg] [facility] 5 17:14:17 Social History None recorded. Functional Status [...] Response Coronary Artery Disease N Gout N Kidney Stones N Blood Diseases N Hyperthyroidism N Depression Y COPD N [...] ICD10 Code Diagnosis IMO Codes Diagnosis Note [id number] Tunde Vitale MD Main Office [address] [place] [address] 10/21/2018 15:46:44 10/21/2018 17:34:19 Fatigue 83946342 R53.83 Premenstru al tension syndrome 70304855 N94.3 Insomnia 299310016 G47.0 0 Acne 90077171 L70.9 000015 Tunde Vitale MD Main Office [address] [place] [address] 11/21/2018 11:12:03 11/21/2018 12:17:33 Anti-nuclear factor detected 761336825 R76.8 Insomnia 374025088 G47.0 0 Fatigue 75196505 R53.83 [id number] Tunde Vitale MD Main Office [address] [place] [address] 12/22/2018 11:49:03 12/22/2018 12:40:52 Pain of joint 49415600 M25.50 Insomnia 274699507 G47.0 0 Premenstru al tension syndrome 94262018 N94.3 Upper resp iratory infection 66637548 J00 [id number] Tunde Vitale MD Main Office [address] [place] [address] 02/03/2019 11:08:23 02/03/2019 12:04:44 Exposure to mold 2233827445 4524491 Z77.120 Pain of joint 87117132 M 25.50 [id number] Tunde Vitale MD Main Office [address] [place] [address] 04/21/2019 13:33:59 04/21/2019 14:32:28 Pain of joint 05226393 M25.50 Anti-nucle ar factor detected 064038948 R76.8 Exposure to mold 8971566 857 0115939 Z77.120 Premenstru al tension syndrome 96169160 N94.3 [id number] Tunde Vitale MD Main Office [address] [place] [address] 11/21/2020 12:14:47 11/21/2020 13:02:30 Perimenopausal disorder 078020295 N95.9 Pain of joint 59402451 M 25.50 Adult heal th examination 963165752 Z00.00 Acid reflux 412334752 K2 1.9 Anti-nucle ar factor detected 898176784 R76.8 [id number] Tunde Vitale MD Main Office [address] [place] [address] 01/02/2021 09:10:36 01/02/2021 10:02:31 Hormone replacement therapy 774847158 Z79.890 Pain of joint 47364590 M 25.50 Perimenopa usal disorder 359624668 N95.9 Anti-nucle ar factor detected 487668308 R76.8 [id number] Tunde Vitale MD Main Office [address] [place] [address] 04/11/2021 12:37:32 04/11/2021 13:48:17 Candidiasis 87690344 B37.9 COVID-19 571612273 U07.1 Bacterial overgrowth syndrome 64603621 A04.9 [id number] Tunde Vitale MD Main Office [address] [place] [address] 07/10/2021 12:12:52 07/10/2021 12:59:58 Anti-nuclear factor detected 644625960 R76.8 Pain of joint 59207491 M 25.50 Fatigue 09817051 R53.83 [id number] Tunde Vitale MD Main Office [address] [place] [address] 07/24/2022 13:17:50 07/24/2022 14:08:26 Anti-nuclear factor detected 648109575 R76.8 Parasitic disease 605127 07 B89 Hormone re placement therapy 070245446 Z79.890 Adult heal th examination 282158503 Z00.00 Pain of joint 54760148 M 25.50 [id number] Tunde Vitale MD Main Office [address] [place] [address] 07/11/2023 13:43:58 07/11/2023 14:26:46 Menopause present 464639516 N95.1 Weight gain 9626744 R63. 5 Anti-nucle ar factor detected 324874451 R76.8 Adult heal th examination 927156417 Z00.00 Subclinica l hypothyroidism 68637080 E02 [id number] Tunde Vitale MD Main Office [address] [place] [address] 10/24/2023 15:58:32 10/24/2023 16:54:17 Perimenopausal disorder 524212861 N95.9 Hypothyroidism 35381983 E03.9 Anti-nucle ar factor detected 940059768 R76.8 390507 Tunde Vitale MD Main Office [address] [place] [address] 12/07/2024 17:11:44 12/07/2024 17:57:16 Drug therapy finding 754919750 Z79.890 64480630 Anti-nucle ar factor detected 956755697 R76.8 1965396 Menopause present 406733 006 Z78.0 03378 Hyperlipidemia 19678937 E78.5 72508613 General ex amination of patient 064287109 Z00.00 594169 Health Concerns Section Related Observation LastModified by Organization Detai ls LastModified Time None Recorded Concern Status LastModified by Organization Details LastModified Time None Recorded Advance Directives Directive None Recorded Payers Insurance Date Sequence Insurance Name Policy Number Policy Palacios Covered Member ID Palacios Member ID Guarantor Name 12/07/2024 1 *SELF PAY* Te david Magallanes 12/07/2024 1 [facility] ([facility]) [id number] Bandar Magallanes [id number] Mikki Magallanes 07/11/2023 1 [facility] (O) [id number] Judytarsha Magallanes [id number] Mikki Magallanes Notes Date Note Type Note Provider Name and Address Organization Details Recorded Time 07/10/2021 text/html Had COVID in October and then March. In March, felt like it was a cold.Chest was ok. No problems with this. [place] like a sinus infection. Sinuses feel better now. Still experiencing fatigue. Hands can be swollen at times. Brain fog feels better than it did.Reflux is under control. 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 Entire family had it. had it.Was taking cinnamon pills.Off Naltrexone for 2 weeks and can tell when not taking it. Tunde Vitale MD [address] [place], [address], [facility] 07/10/2021 19:58:33 07/24/2022 text/html Mikki is here today for check up. She started taking methene blue 2 months ago. She has better mental clarity. She feels it is reducing inflammation for her. Her had gotten sick and he has been sick for 10 days. She only felt sick for 3 -4 days. It can help with anxiety and depression. She feels calmer.She is exercising and walking. Walking 2 -3 miles and lifting weights also. She feels hard and bloated. She stopped plaquenil last year, but then it didn't seem to help anymore. Tunde Vitale MD [address] [place], [address], [facility] 07/24/2022 20:31:57 07/11/2023 text/html ROS as noted in the HPI Mikki is here today for follow up -She has gone into menopause and she has gained weight.Sleep - she will wake tired. She will wake at times through the night. Rarely will get a full night sleep. She will wake and fall back to sleep. She will wake every 1 1/2 - 2 hours. She won't stay away long, but she never feels she gets deep sleep. She tried herbal/melatonin and it didn't seem to help. She is feeling tired. Swelling in entire body. She feels it in her hands. She doesn't typically have swelling in the winter, but she noticed it this winter. She had a root canal removed 2 months ago. Complications and couldn't eat for 1 month. She didnt lose weight. She has never dealt with a weight issue in her life. GI - times when she has a little acid reflux. She feels her digestion is good. Her BM are regular. She had to stop Naltrexone for her oral surgery. She can tell it is helpful for her. She will get itchy if she doesn't take it. During the 2 weeks she was off it, then her sleep was worse. She had restless leg syndrome. She was itchy. She is noticing more facial hair. Tunde Vitale MD [address] [place], [address], [facility] 07/11/2023 23:23:48 10/24/2023 text/html ROS as noted in the HPI Mikki is here today for follow up -She had a menstrual cycle end of July. It lasted for 2 weeks. Very heavy flow initially and then normal and then light. Then another cycle 1 1/2 - 2 weeks later, she had another cycle. It has been a month since the last visit.She did the carnivore diet and lost 9 - 10lbs. She felt better. She has tried to stay with this. Energy level - was slightly better.Sleep - not good. She wakes around 3am every night and up until 6am.She didn't try the progesterone. She was concerned about weight gain. Hair is doing better than it was. Mental clarity - it depends upon the day. She was recently sick. She has thick mucous and she will cough something up at times. Yellow thick mucous. She coughs Tunde Vitale MD [address] [place], [address], [facility] 10/24/2023 23:08:03 12/07/2024 text/html ROS as noted in the [...] helped with sleep also. Tunde Vitale MD [address] [place], [address], [facility] 12/07/2024 23:13:17 OBGyn Episode No OBEpisode recorded.
--- OUTSIDE RECORDS SUMMARY | 2025-02-04 10:07 | XMS_ITS | Clinical Summary ---
Author Organization [facility] Address [address] [place] [address] Care Team Providers Care Visual And Stock Associate Name Role Phone Carlos Jacome MD Primary Care Provider + Source Comments [facility],non-owned Affiliates and Associated Physician Practices is amultiple site organization consisting of ambulatory clinics and hospital sitesin [place], [place], [place]. This disclosure is being madepursuant to the Care Everywhere program and may not contain all information available regarding this patient. Last updated 17.[facility] Allergies Active Allergy Reactions Criticality Noted Date Comments Codeine 09/13/2016 Sulfa Drugs 09/13/2016 Immunizations Immunization Administration Dates Next Due HEP A VACCINE, ADULT 09/13/2016 HEP B VACCINE, ADULT 3 DOSE 09/13/2016 Social History Tobacco Use Types Packs/Day Years Used Date Smoking Tobacco: Never Assessed Comments Unknown Sex and Gender Information Value Date Recorded Sex Assigned at Not on file Legal Sex Female 12:41 PM CDT Gender Identity Not on file Sexual Orientation Not on file Plan of Treatment Health Maintenance Due Date Last Done Comments COLOGUARD (AGES 45-75) - COL ON CA SCREENING 1969 COLON MONITORING 1969 COLONOSCOPY - COLON CA SCREENING 1969 CT COLONOGRAPHY - COLON CA SCREENING 1969 Colorectal Cancer Screening 1969 FIT - COLON CA SCREENING 1969 FLEX SIG - COLON CA SCREENING 1969 LIPID TESTING 1969 MAMMOGRAM 1969 HIV SCREENING 1984 HEPATITIS C SCREENING 12/13/1987 DTAP/TDAP/TD VACCINES (1 - Tdap) 1988 HEPATITIS A VACCINE (1 of 2 - Risk 2-dose series) 09/13/2016 09/13/2016 HEPATITIS B VACCINE (2 of 3 - 19+ 3-dose series) 10/11/2016 09/13/2016 PNEUMOCOCCAL VACCINE 50+ (1 of 1 - PCV) 12/18/2019 ZOSTER VACCINE (1 of 2) 12/18/2019 DEPRESSION SCREENING 03/25/2024 COVID-19 VACCINE (1 - 2023-2 5 season) 2024 INFLUENZA VACCINE (#1) 2024 HIB VACCINE Aged Out No longer eligi ble based on patient's age to complete this topic HPV VACCINE Aged Out No longer eligi ble based on patient's age to complete this topic MENINGOCOCCAL (Group B) VACC INE SHARED DECISION-MAKING Aged Out No longer eligibl e based on patient's age to complete this topic MENINGOCOCCAL GROUPS A/C/Y/W VACCINE Aged Out No longer eligible b ased on patient's age to complete this topic Insurance [address] [address] Care Teams Visual And Stock Associate Relationship Specialty Start Date End Date Carlos Jacome MD [address] [id number] PCP - General Family Medicine 09/13/16
--- OUTSIDE RECORDS SUMMARY | 2025-02-04 10:07 | XMS_ITS | Clinical Summary ---
Author Organization [facility]ridhar [facility] Address [address] [facility] [place] [address] Phone Care Team Providers Care Human Resources Safety Manager Name Role Phone Unavailable Primary Care Provider Unavailabl e Allergies Active Allergy Reactions Criticality Noted Date Comments Codeine Unknown 09/13/2016 Sulfa (Sulfonamide Antibiotics) Rash Low 08/24 Medications PAYLOADER MACHINE OPERATOR Thyroid 30 mg tablet 07/15/2023 Active Active Problems No known active problems Social History Tobacco Use Types Packs/Day Years Used Date Smoking Tobacco: Never Smokeless Tobacco: Never Tobacco Cessation:Counseling Given: Not Answered Comments Unknown Sex and Gender Information Value Date Recorded Sex Assigned at Not on file Legal Sex Female 12:01 PM CDT Gender Identity Not on file Sexual Orientation Not on file Plan of Treatment Health Maintenance Due Date Last Done Comments DTAP/TDAP/TD VACCINES (1 - Tdap) 1988 HEPATITIS B VACCINES (1 of 3 - 19+ 3-dose series) 11/2409/13/2016 HPV/Cotest (21-29) 1990 CERVICAL CANCER SCREENING 12/18/1999 HPV/Cotest (30-65) 12/18/1999 PAP SMEAR 12/18/1999 BREAST CANCER SCREENING 2009 COLORECTAL SCREENING 2014 Colorectal Cancer Screening 2014 FIT-DNA Q 3 years 2014 FIT/FOBT Q 1 year 2014 Flex Sig/CT Colonography Q 5 years 2014 ZOSTER VACCINE (1 of 2) 12/18/2019 INFLUENZA VACCINE (#1) 2024 Insurance [facility] BLUE PREFERRED
== END 2025-02-04 09:29 | disposition home or self-care (01) ==
PROVIDERS: PCP Family Medicine; Visit Provider Family Medicine
DX: R74.01 Elevation of levels of liver transaminase levels (principal); R71.8 Other abnormality of red blood cells
CPT/HCPCS: 76700